=== PATIENT | female | born 1960 | race Caucasian/White ===

== ENCOUNTER 2021-09-12 12:23 | Emergency (ER) | payer MEDICARE, OTHER, SELFPAY ==
--- NOTE | 2021-09-12 12:34 | ED_ITS ---
HPI - Extremity Injury (Upper) General Chief Complaint: Extremity Injury, Upper Stated Complaint: fell down Rt hand possibly broken Time Seen by Provider: 09/12/21 12:34 History of Present Illness HPI narrative: 60-year-old female nonsmoker with noncontributory medical history presents with a chief complaint of a ground level fall resulting in pain and injury to her right hand just prior to arrival. She was walking down stairs and stepped off of the bottom step and thinks she caught her feet up underneath her and fell onto an outstretched hand. She denies any dizziness, weakness or lightheadedness. She denies any head injury. She has no head neck or back pain. She has pain overlying the medial aspect of her hand overlying the 5th metacarpal. She denies any numbness, tingling or weakness Related Data Home Medications Medication Instructions Recorded Confirmed chlorthalidone 25 mg tablet 25 mg PO DAILY 09/12/21 09/12/21 Allergies Allergy/AdvReac Type Severity Reaction Status Date / Time Sulfa (Sulfonamide Allergy Unknown SWELLING Verified 09/12/21 12:38 Antibiotics) [SULFA (SULFONAMIDE ANTIBIOTICS)] lisinopril AdvReac Cough Verified 09/12/21 12:38 Review of Systems Review of Systems Narrative: GENERAL: Denies chills, fatigue, malaise, fever, sweats. HEENT: Denies sinus pain, ear pain, sore throat, difficulty swallowing, dizziness. RESPIRATORY: Denies dyspnea, cough, wheezing, hemoptysis, sputum. CARDIOVASCULAR: Denies chest pain, palpitations, orthopnea, edema, GASTROINTESTINAL: Denies nausea, vomiting, abdominal pain, diarrhea, constipation, melena. : Denies dysuria, frequency, incontinence, hematuria, urinary retention. MUSCULOSKELETAL: See HPI SKIN: Denies rash, skin lesions, or other NEUROLOGIC: Denies weakness, headache, numbness, change in speech, confusion, seizures, incoordination. PSYCHIATRIC: No concerning psychosocial issues. 12 point review of systems is negative except for those stated above Patient History Social History Smoking Status: Never smoker Exam Narrative Exam Narrative: GEN: AOx3 and in mild distress EYES: Pupils are equal, round, and reactive to light and accommodation. Extraoccular muscles are intact bilaterally. There is no subconjunctival hemorr deshaun or exudate. CHEST: Lungs are clear to auscultation bilaterally and free of wheezes, rales, or rhonchi. Heart rate is regular rhythm, there are no murmurs, clicks, rubs, or gallops. There is no chest wall tenderness. ABD: Abdomen is soft and nontender. There is no guarding or rebound. Bowel sounds are normal in all 4 quadrants. There is no mass or organomegaly. EXT: Full but painful range of motion of right hand and wrist. No pain on palpation of bones of the wrist, elbow or shoulder. Closed, isolated and neurovascularly intact SKIN: Warm, pink, and dry. No erythema or rash Initial Vital Signs Initial Vital Signs: Vital Signs Temperature 98 F 09/12/21 12:35 Pulse Rate 94 H 09/12/21 12:35 Respiratory Rate 17 09/12/21 12:35 Blood Pressure 169/89 H 09/12/21 12:35 Pulse Oximetry 96 09/12/21 12:35 Procedures Orthopedic Splinting/Casting Injury #1: Side: right Upper Extremity Injury Location: hand Upper Extremity Immobilizer: volar splint Post splinting neuro exam: intact Post splinting vascular exam: intact Placed by: Nursing Course Orders Ordered: ED Orders 09/12/21 12:41 XR hand RT min 3V Stat Vital Signs Vital signs: Vital Signs - 8 hr 09/12/21 12:35 Temperature 98 F Pulse Rate 94 H Respiratory Rate 17 Blood Pressure 169/89 H Pulse Oximetry 96 MDM - Extremity Injury (Upper) Imaging Data Extremity x-ray #1: Radiologist's Impression: Dayna Clayton??60??F??1960 ? Allergy/Adv: Sulfa (Sulfonamide Antibiotics), lisinopril (More??) Close Hand X-Ray (Signed) LitzyChuckie honeycuttence - 09/12/21 Radiology - Historical 05/12/17 Radiology - Historical 05/12/17 Launch?[address] [address] XRay Report Signed Patient: Dayna Clayton MR#: [id number] : 1960 Acct:[id number] Age/Sex: 60 / F Date of Service: 09/12/21 Loc: ED Accession Number: [id number] ?? Procedure: XR hand RT min 3V Ordering Provider: Tien Benitez D.O. PROCEDURE:? XR HAND RT MIN 3V ? INDICATIONS:? fall with pain over 5th MC ? TECHNIQUE:? 3 views of the hand(s) acquired.? ? COMPARISON:? None. ? FINDINGS:? ? Bones:? No fractures or dislocations.? Carpal bones are normally aligned.? No suspicious bony lesions.? ? Soft tissues:? No suspicious soft tissue calcifications.? ? ? IMPRESSION:? No fracture. No osseous lesion. If symptoms and/or clinical suspicion for pathology persists, further assessment with repeat radiographs (7-10 days) or advanced imaging (e.g. CT, MRI or bone scan) should be considered. ? ? Dictated by: Yelena Mcghee MD, PhD on 09/12/2021 at 11:53 ? ? Approved by: Yelena Mcghee MD, PhD on 09/12/2021 at 11:55? Discharge Plan Departure Patient Disposition: Home Clinical Impression: Abdominal pain Hand sprain Qualifiers: Encounter type: initial encounter Laterality: right Qualified Code(s): S63.91XA - Sprain of unspecified part of right wrist and hand, initial encounter Instructions: DI for Wrist Sprain Activity Restrictions/Additional Instructions: *You have been diagnosed with [fall with hand pain and sprain, no evidence of fracture or dislocation on imaging or physical exam *What to do: *Please continue to take your regular medications as directed. [ ] New medication prescriptions sent to your pharmacy: [ ] [ ] New medication written as a paper prescription [ x] No new medications given *Please follow up with your primary care provider in 2-3 days, call for an appointment. Let them know you were seen in the Emergency Department and that we ask that you be seen in follow up. We will electronically transmit a record of today's note if your PCP is in our system *If you do not have a primary care provider please contact the [facility] Resource line at [phone]. They will ask some questions about your medical history and help get you set up with a doctor in the community. *Return to Emergency Department if you should have any new, worsening or concerning symptoms, such as [fever greater than 101 F, shaking chills, worsening pain, persistent vomiting or other bothersome symptoms] Prescriptions: No Action chlorthalidone 25 mg tablet 25 mg PO DAILY RF: 0 Referrals: Woodrow Eduardo MD [Primary Care Provider] -
[2021-09-12 12:35] VITALS: BP 169/89; PULSE 94; RESP 17; TEMP 36.6; O2SAT 96; BMI 29.8
--- NOTE | 2021-09-12 12:41 | DI.RAD.S_ITS ---
PROCEDURE: XR HAND RT MIN 3V INDICATIONS: fall with pain over 5th MC TECHNIQUE: 3 views of the hand(s) acquired. COMPARISON: None. FINDINGS: Bones: No fractures or dislocations. Carpal bones are normally aligned. No suspicious bony lesions. Soft tissues: No suspicious soft tissue calcifications. IMPRESSION: No fracture. No osseous lesion. If symptoms and/or clinical suspicion for pathology persists, further assessment with repeat radiographs (7-10 days) or advanced imaging (e.g. CT, MRI or bone scan) should be considered. Dictated by: Yelena Mcghee MD, PhD on 09/12/2021 at 11:53 Approved by: Yelena Mcghee MD, PhD on 09/12/2021 at 11:55
== END 2021-09-12 13:19 | disposition home or self-care (01) ==
PROVIDERS: Emergency Provider Emergency Medicine
DX: S63.91XA Sprain of unspecified part of right wrist and hand, initial encounter (principal); R10.9 Unspecified abdominal pain; W19.XXXA Unspecified fall, initial encounter
CPT/HCPCS: 29540; 73130; 99283

== ENCOUNTER 2022-02-20 21:53 | Emergency (ER) | payer MEDICARE, OTHER, SELFPAY ==
[2022-02-20 21:56] VITALS: BP 155/77; PULSE 71; RESP 16; TEMP 36.6; O2SAT 98; BMI 28.8
--- NOTE | 2022-02-20 22:01 | DI.RAD.S_ITS ---
PROCEDURE: XR RIBS LT MIN 3V W CXR1V INDICATIONS: fall in tub, striking left ribs/back TECHNIQUE: 3 views of the left ribs were acquired, along with a single view chest. COMPARISON: None. FINDINGS: Surgical changes and devices: None. Bones and chest wall: No definite acute displaced rib fractures seen. No other fractures or dislocations. No suspicious bony lesions. Overlying soft tissues appear unremarkable. Lungs and pleura: No pleural effusions or pneumothorax. Lungs appear clear. Mediastinum: Mediastinal contours appear normal. Heart size is normal. IMPRESSION: Chest without acute cardiopulmonary abnormalities. No definite rib fractures identified. Dictated by: Aly Rogers M.D. on 02/20/2022 at 23:21 Approved by: Aly Rogers M.D. on 02/20/2022 at 23:22
--- NOTE | 2022-02-20 23:41 | ED.BACK ---
HPI - Back Pain/Injury General Chief Complaint: Back Pain/Injury Stated Complaint: FALL HURT LOWER BACK Time Seen by Provider: 02/20/22 23:41 History of Present Illness HPI Narrative: 61-year-old woman with fibromyalgia, chronic pain, lower extremity edema who fell in the shower this evening landing on her left posterior ribs and suffering significant pain at this time. She also notes that she was diagnosed with a bladder infection this morning is currently on antibiotics. The fall was a mechanical fall not associated with any weakness. She does not report any fevers, no dyspnea, palpitations, abdominal pain just significant pain with movement related to the left posterior ribs from the fall. There is no additional back hip or lower extremity injury Related Data Home Medications Medication Instructions Recorded Confirmed chlorthalidone 25 mg tablet 25 mg PO DAILY 09/12/21 09/12/21 Previous Rx's Medication Instructions Recorded oxycodone-acetaminophen 5 mg-325 1 tab PO Q6H PRN #30 tab 02/20/22 mg tablet Allergies Allergy/AdvReac Type Severity Reaction Status Date / Time Sulfa (Sulfonamide Allergy Unknown SWELLING Verified 02/20/22 22:01 Antibiotics) [SULFA (SULFONAMIDE ANTIBIOTICS)] lisinopril AdvReac Cough Verified 02/20/22 22:01 Review of Systems Review of Systems Narrative: Remainder of complete review of systems is otherwise unremarkable except for that included in the HPI. Patient History Medical History (Updated 02/20/22 @ 23:59 by Sharmin Bee MD) Fibromyalgia Social History Smoking Status: Never smoker Smoking Status: Never smoker alcohol intake frequency: holidays/special occasions only Substance Use Type: does not use Exam Initial Vital Signs Initial Vital Signs: Vital Signs Temperature 98 F 02/20/22 21:56 Pulse Rate 71 02/20/22 21:56 Respiratory Rate 16 02/20/22 21:56 Blood Pressure 155/77 H 02/20/22 21:56 Pulse Oximetry 98 02/20/22 21:56 General: Healthy appearing, in significant pain but. Able to give a complete and coherent history. Well-nourished well-developed HEENT: Moist mucous membranes, normal sclera with reactive pupils, no trauma to the head Neck: No tenderness, no midline cervical spine tenderness Respiratory: Significant tenderness to left posterior ribs without obvious abnormality, subcutaneous air abrasions, contusions or skin rashes. Spine: She is splinting on that side secondary to pain. There is no tenderness along the thoracic or lumbar spine to palpation she does have significant paraspinous spasms from T6-L1 on the left side. Cardiac: Regular rate and rhythm no murmurs no bruits Abdomen: Soft, nontender, good bowel tones, no flank pain Skin: Warm and dry, no rashes Neurologic: Grossly neurologically intact with no obvious asymmetries or abnormalities Extremities: No trauma, well perfused Psych: Cooperative, appropriate insight and affect Course Orders Ordered: ED Orders 02/20/22 22:01 XR ribs LT min 3V w CXR1V Stat Discontinued Medications Ketorolac Tromethamine (Ketorolac 30 Mg/Ml Vial) 30 mg IM NOW ONE Stop: 02/20/22 23:53 Last Admin: 02/21/22 00:08 Dose: 30 mg Documented by: RAMILA Oxycodone/Acetaminophen (Oxycodone/Acetaminophen 5/325 Tablet) 2 tab PO NOW ONE Stop: 02/20/22 23:53 Last Admin: 02/21/22 00:08 Dose: 2 tab Documented by: RAMILA Oxycodone/Acetaminophen (Oxycodone/Apap 5/325 Prepack) 1 bottle MISC SEEINSTR ONE Stop: 02/20/22 23:53 Last Admin: 02/21/22 00:07 Dose: 1 bottle Documented by: RAMILA Vital Signs Vital signs: Vital Signs - 8 hr 02/20/22 21:56 Temperature 98 F Pulse Rate 71 Respiratory Rate 16 Blood Pressure 155/77 H Pulse Oximetry 98 MDM - Back Pain/Injury ECG Data Interpretation: FINDINGS:? ? Surgical changes and devices:? None.? ? Bones and chest wall:? No definite acute displaced rib fractures seen.? No other? fractures or dislocations.? No suspicious bony lesions.? Overlying soft tissues appear unremarkable.? ? Lungs and pleura:? No pleural effusions or pneumothorax.? Lungs appear clear.? ? Mediastinum:? Mediastinal contours appear normal.? Heart size is normal.? ? IMPRESSION:? Chest without acute cardiopulmonary abnormalities.? No definite rib fractures identified. ? ? Dictated by: Aly Rogers M.D. on 02/20/2022 at 23:21? ?? MDM Narrative Medical decision making narrative: 61-year-old woman who suffered a mechanical fall in the shower landing over the edge of the shower on the left posterior ribs. Fortunately, there actually are no obvious rib fractures, no hemopneumothorax and no acute spinous injuries or lower extremity abnormalities. She is given a shot of Toradol in 2 Percocet in the emergency department. She notes that she and her flank Deloris in 48 hours so she will be given a couple of extra pain pills to deal with the discomfort of traveling with significantly bruised ribs. She is also given incentive spirometer instructions on use to avoid complications. There is no evidence of additional trauma or need for additional workup at this time. Questions are answered and she is safe for home discharge Discharge Plan Departure Patient Disposition: Home Clinical Impression: Fall Qualifiers: Encounter type: initial encounter Qualified Code(s): W19.XXXA - Unspecified fall, initial encounter Contusion of ribs Qualifiers: Encounter type: initial encounter Laterality: left Qualified Code(s): S20.212A - Contusion of left front wall of thorax, initial encounter Instructions: DI for Rib Fracture Activity Restrictions/Additional Instructions: Thank you for coming in today Fortunately, the x-rays do not show an obvious rib fracture however you clearly have bruised multiple ribs and are going to have the same type of recovery had you actually broken up. The underlying lung itself looks very healthy. There is no evidence of collapsed lung or bleeding around her lungs. One of the complications with rib fractures is developing a pneumonia because you are not taking deep enough breaths and fully inflating the lung in that area secondary to pain. Please use the incentive spirometer to help keep the lung fully inflated and avoid pneumonia. Using 400 mg of ibuprofen (2 [id number] pills) and 1 Tylenol every 6 hours can be very helpful in controlling pain. For severe pain use to ibuprofen and 1-2 Percocet will be helpful. On days when you do choose to use Percocet make sure that you are using a stool softener to avoid constipation as well. If you find new or changing symptoms, please feel free to return to the emergency department Prescriptions: New oxycodone-acetaminophen 5-325 mg tablet 1 tab PO Q6H PRN (Reason: pain) Qty: 30 0RF No Action chlorthalidone 25 mg tablet 25 mg PO DAILY 0RF
--- NOTE | 2022-02-21 00:01 | PC.NURSE ---
RT at bedside for incentive spirometer teaching
[2022-02-21] MEDS: OXYCODONE/APAP 5/325 PREPACK 1 BOTTLE MISC (00:07)
[2022-02-21] MEDS: OXYCODONE/ACETAMINOPHEN 5/325 TABLET 2 TAB PO (00:08)
[2022-02-21] MEDS: KETOROLAC 30 MG/ML VIAL IM (00:08)
== END 2022-02-21 00:17 | disposition home or self-care (01) ==
PROVIDERS: Emergency Provider Emergency Medicine
DX: S20.212A Contusion of left front wall of thorax, initial encounter (principal); W19.XXXA Unspecified fall, initial encounter; Y92.89 Other specified places as the place of occurrence of the external cause
CPT/HCPCS: 71101; 96372; 99283; 99284; J1885

== ENCOUNTER 2022-05-30 11:15 | Inpatient (IN) | payer MEDICARE, OTHER, SELFPAY ==
[2022-05-30] VITALS (20 sets, daily range): BP systolic 94–145; BP diastolic 44–94; PULSE 84–94; RESP 16–29; TEMP 36.7–37.3; O2SAT 92–98; BMI 29.7
[2022-05-30 12:09] LABS: Add Manual Diff / Slide Review NO; Basophils Absolute Auto 0 /uL (0-100); Basophils Percent Auto 0.2 % (0-2); Eosinophils Absolute Auto 0 /uL (0-450); Eosinophils Percent Auto 0.1 % (2-4); Hematocrit 42.6 % (36-46); Hemoglobin 14.8 g/dL (12.0-16.0); Lymphocytes Absolute Auto 800 /uL (1100-4500); Lymphocytes Percent Auto 5.9 % (25-40); Mean Corpuscular HGB Conc 34.6 % (30-36); Mean Corpuscular Hemoglobin 30.5 PG (26-34); Mean Corpuscular Volume 88.1 fL (80-100); Monocytes Absolute Auto 100 /uL (0-900); Monocytes Percent Auto 0.9 % (3-14); Neutrophils Absolute Auto 12400 /uL (1500-7000); Neutrophils Percent Auto 92.9 % (50-75); Platelet Count 300 X10^3/uL (150-400); Red Blood Cell Count 4.84 X10^6/uL (4.0-5.2); White Blood Cell Count 13.3 X10^3/uL (4.5-11.0)
[2022-05-30 12:15] LABS: Alanine Aminotransferase 571 IU/L (<35); Albumin 4.7 g/dL (3.5-5.0); Albumin Globulin Ratio 1.3 (1.0-2.8); Alkaline Phosphatase 245 U/L (38-126); BUN Creatinine Ratio 18.3 (6-22); Bilirubin Total 3.6 mg/dL (0.2-1.3); Blood Urea Nitrogen 17 mg/dL (7-17); Calcium 9.9 mg/dL (8.4-10.2); Carbon Dioxide 32 mmol/L (22-32); Chloride 97 mmol/L (98-107); Estimated Glomerular Filt Rate > 60 mL/min (>60); Globulin 3.6 g/dL (1.7-4.1); Glucose 209 mg/dL (80-110); HEMOLYSIS < 15 (0-50); Lipase 199 U/L (23-300); Potassium 3.1 mmol/L (3.4-5.1); Sodium 140 mmol/L (137-145); Total Protein 8.3 g/dL (6.3-8.2)
[2022-05-30 12:26] LABS: Aspartate Aminotransferase 1184 IU/L (14-36)
[2022-05-30] MEDS: ONDANSETRON 4 MG/2 ML INJ IV (12:34)
[2022-05-30] MEDS: KETOROLAC 30 MG/ML VIAL 15 MG IV (12:34)
[2022-05-30] MEDS: SODIUM CHLORIDE 0.9% 1,000 ML 1000 ML IV (12:35)
--- NOTE | 2022-05-30 12:36 | DI.CT.S_ITS ---
PROCEDURE: CT ABDOMEN PELVIS W CON INDICATIONS: Generalized abdominal pain TECHNIQUE: After the administration of intravenous contrast, axial sections acquired from the lung bases to the pubic symphysis. Coronal and sagittal reformats were performed. For radiation dose reduction, the following was used: automated exposure control, adjustment of mA and/or kV according to patient size. COMPARISON: [facility], CT, ABDOMEN/PELVIS WITH CONTRAST, 05/12/2017, 18:36. FINDINGS: Image quality: Excellent. Lung bases: Scattered scarring/atelectasis. Heart: No significant findings. ABDOMEN: Liver: Steatosis. Gallbladder: Distended Biliary ducts: Unremarkable. Pancreas: Moderate fatty atrophy. Spleen: Unremarkable. Adrenal Glands: Unremarkable. Kidneys and Ureters: Unremarkable. Stomach and Bowel: Small hiatal hernia. No bowel obstruction. Colonic diverticulosis. Peritoneum: No abnormal intraperitoneal fluid. No free air. Ventral Wall: Small fat containing umbilical hernia. Stable lower midline clip. Abdominal Nodes: No retroperitoneal or mesenteric adenopathy by size criteria. Vessels: Aorta and inferior vena cava are normal in size. PELVIS: Pelvic Organs: Unremarkable. Bladder: Unremarkable. Pelvic Nodes: No enlarged lymph nodes. Miscellaneous: No hernias are seen. Bones: Age-indeterminate fractures of the left lower ribs. IMPRESSION: Age-indeterminate fractures involving the left posterior 10th and 11th ribs. Otherwise, no acute abdominal pelvic pathology. The gallbladder is distended and could be better evaluated with ultrasound. There is hepatic steatosis. Dictated by: Familia Shah M.D. on 05/30/2022 at 13:27 Approved by: Familia Shah M.D. on 05/30/2022 at 13:36
--- NOTE | 2022-05-30 12:54 | ED.ABDPAIN ---
HPI - Abdominal Pain <Thelma Kelsey PA-C - Last Filed: 05/30/22 22:06> General Chief Complaint: Abdominal Pain Stated Complaint: stomach pain Time Seen by Provider: 05/30/22 12:07 Source: patient and family Mode of arrival: Ambulatory History of Present Illness HPI narrative: 61-year-old female with past medical history chronic pain, fibromyalgia presents to the ED with 3 days of epigastric and right upper quadrant pain. Patient also endorses nausea, vomiting, bloating. Patient describes the abdominal pain as wrapping around her abdomen to her sides. Patient has some history of IBS. Patient denies alcohol use. Patient denies drug use. Patient is a nonsmoker. Patient denies history of hepatitis or other liver problems. Related Data Home Medications Medication Instructions Recorded Confirmed chlorthalidone 25 mg tablet 25 mg PO DAILY 09/12/21 05/31/22 Previous Rx's Medication Instructions Recorded celecoxib 200 mg capsule (Celebrex) 200 mg PO BID #10 caps 05/31/22 ciprofloxacin HCl 750 mg tablet 750 mg PO BID #6 tabs 05/31/22 gabapentin 300 mg capsule 300 mg PO Q8HR #30 caps 05/31/22 (Neurontin) metronidazole 375 mg capsule 750 mg PO BID #6 caps 05/31/22 (Flagyl) oxycodone 5 mg tablet 5 mg PO Q4HR PRN Pain, Moderate 05/31/22 (4-6) #30 tabs Allergies Allergy/AdvReac Type Severity Reaction Status Date / Time losartan Allergy Unknown Verified 06/02/22 10:53 Sulfa (Sulfonamide Allergy Unknown SWELLING Verified 06/02/22 10:53 Antibiotics) [SULFA (SULFONAMIDE ANTIBIOTICS)] lisinopril AdvReac Cough Verified 06/02/22 10:53 Review of Systems <Thelma Kelsey PA-C - Last Filed: 05/30/22 22:06> Review of Systems ROS Unobtainable: All systems reviewed & are unremarkable except as noted in HPI and below Constitutional Constitutional: Denies chills, Denies fatigue, Denies fever(s), Denies frequent falls, Denies lethargy and Denies weakness Eyes Eyes: Denies change in vision, Denies eye discharge, Denies irritation and Denies loss of vision ENT Ears, Nose, Mouth, and Throat: Denies change in voice, Denies dizziness, Denies neck pain, Denies sore throat and Denies throat swelling Cardiovascular Cardiovascular: Denies chest pain, Denies irregular heart rhythm, Denies lightheadedness, Denies palpitations, Denies dyspnea, Denies dyspnea on exertion and Denies orthopnea Respiratory Respiratory: Denies cough, Denies dyspnea, Denies dyspnea on exertion and Denies wheezing Gastrointestinal Gastrointestinal: Reports abdominal pain, Reports bloating, Denies change in bowel habits, Denies coffee ground emesis, Reports diarrhea, Reports nausea and Reports vomiting Genitourinary Genitourinary: Denies hematuria, Denies dysuria, Denies flank pain, Denies urinary incontinence and Denies urinary urgency Musculoskeletal Musculoskeletal: Denies back pain, Denies muscle weakness, Denies neck pain, Denies numbness and Denies tingling Integumentary/Breasts Skin/Breast: Denies pruritus, Denies erythema, Denies rash and Denies wounds Neurologic Neurologic: Denies behavioral changes, Denies confusion, Denies dizziness, Denies frequent falls, Denies loss of vision, Denies numbness, Denies tingling and Denies weakness Psychiatric Psychiatric: Denies anxiety, Denies behavioral changes, Denies confusion, Denies depression, Denies homicidal ideation and Denies suicidal ideation Endocrine Endocrine: Denies fatigue, Denies flushing and Denies palpitations Hematologic/Lymphatic Hematologic/Lymphatic: Denies easy bruising Allergic/Immunologic Allergic/Immunologic: Denies urticaria, Denies throat swelling and Denies wheezing Patient History <Thelma Kelsey PA-C - Last Filed: 05/30/22 22:06> Medical History Fibromyalgia Social History household members: spouse Smoking Status: Never smoker alcohol intake: current Smoking Status: Never smoker alcohol intake frequency: holidays/special occasions only Substance Use Type: does not use Exam <Thelma Kelsey PA-C - Last Filed: 05/30/22 22:06> Initial Vital Signs Initial Vital Signs: Vital Signs Temperature 98.3 F 05/30/22 11:18 Pulse Rate 91 H 05/30/22 11:18 Respiratory Rate 16 05/30/22 11:18 Blood Pressure 135/94 H 05/30/22 11:18 Pulse Oximetry 96 05/30/22 11:18 Oxygen Delivery Method 05/30/22 11:18 Const General: cooperative [facility] Head: normocephalic and atraumatic Ears: external ears normal and TM's normal bilaterally Nose: external nose normal and No nasal discharge Face and sinus: sinuses nontender, face symmetric, no sinus tenderness and No dry mucous membranes Mouth: oral mucosae normal and moist mucous membranes Teeth and gingiva: dentition normal Throat: tonsils normal and uvula midline Eyes General: Yes appearance normal, both eyes and all related structures Eyelids: eyelids normal Conjunctivae: conjunctivae normal Sclera: sclerae normal Pupils: PERRL EOM: EOM intact bilaterally Neck Neck: normal visual inspection, trachea midline, No lymphadenopathy, No midline deformity and No JVD Lymphatic: No lymphedema Chest Chest: normal inspection of the chest Resp Effort & Inspection: normal respiratory effort, able to speak in complete sentences, no respiratory distress and no use of accessory muscles Auscultation: clear to auscultation bilaterally, no rales, no rhonchi and no wheezes Cardio Rate: regular rate Rhythm: regular rhythm Heart Sounds: no click, no gallops, no murmurs and no rubs Pulses: normal peripheral pulses GI Inspection: non-distended Palpation: soft, no hepatosplenomegaly, No guarding, No pulsatile mass and No tender Auscultation: normal bowel sounds Other: Abdomen is soft, nondistended. Abdomen is tender to palpation in the epigastric and right upper quadrants. No CVA tenderness. General: No CVA tenderness Back/Spine/Pelvis Back: No CVA tenderness Cervical Spine: cervical ROM normal and No pain with cervical ROM Thoracic/Lumbar Spine: thoracic and lumbar spine normal to inspection Skin General: no rashes or lesions noted, No jaundice and No petechiae Neuro General: patient alert, patient oriented x3, gait normal and no focal motor deficits Speech: speech normal Extrem General: full ROM, no clubbing, cyanosis or edema, no pedal edema and no calf tenderness Psych Appearance: well kempt Mental Status: mental status grossly normal Attitude: cooperative Thought Content: normal and suicidality Judgment: judgment good <Anson Calixto MD - Last Filed: 06/02/22 12:25> Initial Vital Signs Initial Vital Signs: Vital Signs Temperature 98.3 F 05/30/22 11:18 Pulse Rate 91 H 05/30/22 11:18 Respiratory Rate 16 05/30/22 11:18 Blood Pressure 135/94 H 05/30/22 11:18 Pulse Oximetry 96 05/30/22 11:18 Oxygen Delivery Method 05/30/22 11:18 Course <Thelma Kelsey PA-C - Last Filed: 05/30/22 22:06> Orders Ordered: Discontinued Medications Acetaminophen (Acetaminophen 325 Mg Tablet) 650 mg PO Q6HR [facility] Last Admin: 05/31/22 13:21 Dose: Not Given Documented By: Admin: 05/31/22 05:19 Dose: Not Given Documented By: Admin: 05/31/22 00:41 Dose: Not Given Documented By: Admin: 05/30/22 19:07 Dose: Not Given Documented By: ANA Celecoxib (Celecoxib 100 Mg Capsule) 200 mg PO BID [facility] Last Admin: 05/31/22 10:51 Dose: Not Given Documented By: CONNER Celecoxib (Celecoxib 200 Mg Capsule) 200 mg PO BID [facility] Celecoxib (Celecoxib 200 Mg Capsule) 200 mg PO BID [facility] Last Admin: 05/31/22 08:27 Dose: Not Given Documented By: Admin: 05/30/22 22:42 Dose: 200 mg Documented By: KATHLEEN Gabapentin (Gabapentin 300 Mg Capsule) 300 mg PO Q8HR [facility] Last Admin: 05/31/22 14:53 Dose: Not Given Documented By: KMFortino Admin: 05/31/22 05:19 Dose: Not Given Documented By: Admin: 05/30/22 21:32 Dose: 300 mg Documented By: KATHLEEN Sodium Chloride (Normal Saline 0.9%) 1,000 mls @ 1,000 mls/hr IV BOLUS ONE Stop: 05/30/22 13:21 Last Infusion: 05/30/22 15:49 Dose: 0 mls/hr Documented By: Admin: 05/30/22 12:35 Dose: 1,000 mls/hr Documented By: KIMBELREE Lactated Ringer's (Lactated Ringers) 1,000 mls @ 100 mls/hr IV CONT [facility] Last Admin: 05/31/22 15:29 Dose: 100 mls/hr Documented By: Infusion: 05/31/22 15:21 Dose: 100 mls/hr Documented By: Admin: 05/31/22 05:21 Dose: 100 mls/hr Documented By: Infusion: 05/31/22 05:01 Dose: 100 mls/hr Documented By: Admin: 05/30/22 19:01 Dose: 100 mls/hr Documented By: ANA Levofloxacin (Levaquin) 500 mg in 100 mls @ 100 mls/hr IV NOW ONE Stop: 05/31/22 07:20 Last Infusion: 05/31/22 13:35 Dose: 100 mls/hr Documented By: Admin: 05/31/22 08:26 Dose: 100 mls/hr Documented By: CONNER Metronidazole (Flagyl) 500 mg in 100 mls @ 100 mls/hr IV Q8H [facility] Last Admin: 05/31/22 15:29 Dose: 100 mls/hr Documented By: Infusion: 05/31/22 08:28 Dose: 100 mls/hr Documented By: Admin: 05/31/22 06:57 Dose: 100 mls/hr Documented By: KATHLEEN Sodium Chloride (Normal Saline 0.45%) 500 mls @ 200 mls/hr IV CONT [facility] Last Infusion: 05/31/22 13:22 Dose: 200 mls/hr Documented By: Admin: 05/31/22 08:37 Dose: 200 mls/hr Documented By: CONNER Ketorolac Tromethamine (Ketorolac 30 Mg/Ml Vial) 15 mg IV NOW ONE Stop: 05/30/22 12:23 Last Admin: 05/30/22 12:34 Dose: 15 mg Documented By: KIMBERLEE Morphine Sulfate (Morphine 4 Mg/Ml Inj) 4 mg IV NOW ONE Stop: 05/30/22 14:53 Last Admin: 05/30/22 14:58 Dose: 4 mg Documented By: KIMBERLEE Ondansetron HCl (Ondansetron 4 Mg/2 Ml Inj) 4 mg IV NOW ONE Stop: 05/30/22 12:23 Last Admin: 05/30/22 12:34 Dose: 4 mg Documented By: KIMBERLEE Oxycodone HCl (Oxycodone Ir 5 Mg Tablet) 5 mg PO Q4HR PRN PRN Reason: Pain, Moderate (4-6) Last Admin: 05/31/22 13:27 Dose: 5 mg Documented By: Admin: 05/30/22 19:25 Dose: 5 mg Documented By: ANA Potassium Chloride (Potassium Chloride 20 Meq Tab) 40 meq PO NOW ONE Stop: 05/31/22 09:21 Last Admin: 05/31/22 13:35 Dose: 40 meq Documented By: CONNER Scopolamine (Scopolamine 1 Patch) 1 patch TOP NOW ONE Stop: 05/30/22 17:06 Last Admin: 05/30/22 19:01 Dose: 1 patch Documented By: ANA Vital Signs Vital signs: Vital Signs - 8 hr 05/30/22 14:00 05/30/22 14:22 05/30/22 14:22 Pulse Rate 85 89 Respiratory Rate 20 Blood Pressure 110/56 L Pulse Oximetry 93 93 05/30/22 14:30 05/30/22 14:30 05/30/22 15:00 Pulse Rate 89 87 Respiratory Rate 20 24 Blood Pressure 108/55 L Pulse Oximetry 93 93 05/30/22 15:01 05/30/22 15:01 05/30/22 15:38 Pulse Rate 90 89 Respiratory Rate Blood Pressure 97/53 L Pulse Oximetry 93 05/30/22 16:00 Pulse Rate 85 Respiratory Rate Blood Pressure Pulse Oximetry 97 <Anson Calixto MD - Last Filed: 06/02/22 12:25> Orders Ordered: Discontinued Medications Acetaminophen (Acetaminophen 325 Mg Tablet) 650 mg PO Q6HR [facility] Last Admin: 05/31/22 13:21 Dose: Not Given Documented By: Admin: 05/31/22 05:19 Dose: Not Given Documented By: Admin: 05/31/22 00:41 Dose: Not Given Documented By: Admin: 05/30/22 19:07 Dose: Not Given Documented By: ANA Celecoxib (Celecoxib 100 Mg Capsule) 200 mg PO BID [facility] Last Admin: 05/31/22 10:51 Dose: Not Given Documented By: CONNER Celecoxib (Celecoxib 200 Mg Capsule) 200 mg PO BID [facility] Celecoxib (Celecoxib 200 Mg Capsule) 200 mg PO BID [facility] Last Admin: 05/31/22 08:27 Dose: Not Given Documented By: Admin: 05/30/22 22:42 Dose: 200 mg Documented By: KATHLEEN Gabapentin (Gabapentin 300 Mg Capsule) 300 mg PO Q8HR [facility] Last Admin: 05/31/22 14:53 Dose: Not Given Documented By: Admin: 05/31/22 05:19 Dose: Not Given Documented By: Admin: 05/30/22 21:32 Dose: 300 mg Documented By: KATHLEEN Sodium Chloride (Normal Saline 0.9%) 1,000 mls @ 1,000 mls/hr IV BOLUS ONE Stop: 05/30/22 13:21 Last Infusion: 05/30/22 15:49 Dose: 0 mls/hr Documented By: Admin: 05/30/22 12:35 Dose: 1,000 mls/hr Documented By: KF Lactated Ringer's (Lactated Ringers) 1,000 mls @ 100 mls/hr IV CONT [facility] Last Admin: 05/31/22 15:29 Dose: 100 mls/hr Documented By: Infusion: 05/31/22 15:21 Dose: 100 mls/hr Documented By: Admin: 05/31/22 05:21 Dose: 100 mls/hr Documented By: Infusion: 05/31/22 05:01 Dose: 100 mls/hr Documented By: Admin: 05/30/22 19:01 Dose: 100 mls/hr Documented By: ANA Levofloxacin (Levaquin) 500 mg in 100 mls @ 100 mls/hr IV NOW ONE Stop: 05/31/22 07:20 Last Infusion: 05/31/22 13:35 Dose: 100 mls/hr Documented By: Admin: 05/31/22 08:26 Dose: 100 mls/hr Documented By: CONNER Metronidazole (Flagyl) 500 mg in 100 mls @ 100 mls/hr IV Q8H [facility] Last Admin: 05/31/22 15:29 Dose: 100 mls/hr Documented By: Infusion: 05/31/22 08:28 Dose: 100 mls/hr Documented By: Admin: 05/31/22 06:57 Dose: 100 mls/hr Documented By: KATHLEEN Sodium Chloride (Normal Saline 0.45%) 500 mls @ 200 mls/hr IV CONT [facility] Last Infusion: 05/31/22 13:22 Dose: 200 mls/hr Documented By: Admin: 05/31/22 08:37 Dose: 200 mls/hr Documented By: CONNER Ketorolac Tromethamine (Ketorolac 30 Mg/Ml Vial) 15 mg IV NOW ONE Stop: 05/30/22 12:23 Last Admin: 05/30/22 12:34 Dose: 15 mg Documented By: KIMBERLEE Morphine Sulfate (Morphine 4 Mg/Ml Inj) 4 mg IV NOW ONE Stop: 05/30/22 14:53 Last Admin: 05/30/22 14:58 Dose: 4 mg Documented By: KIMBERLEE Ondansetron HCl (Ondansetron 4 Mg/2 Ml Inj) 4 mg IV NOW ONE Stop: 05/30/22 12:23 Last Admin: 05/30/22 12:34 Dose: 4 mg Documented By: KIMBERLEE Oxycodone HCl (Oxycodone Ir 5 Mg Tablet) 5 mg PO Q4HR PRN PRN Reason: Pain, Moderate (4-6) Last Admin: 05/31/22 13:27 Dose: 5 mg Documented By: Admin: 05/30/22 19:25 Dose: 5 mg Documented By: ANA Potassium Chloride (Potassium Chloride 20 Meq Tab) 40 meq PO NOW ONE Stop: 05/31/22 09:21 Last Admin: 05/31/22 13:35 Dose: 40 meq Documented By: CONNER Scopolamine (Scopolamine 1 Patch) 1 patch TOP NOW ONE Stop: 05/30/22 17:06 Last Admin: 05/30/22 19:01 Dose: 1 patch Documented By: ANA Vital Signs Vital signs: Vital Signs - 8 hr 05/30/22 14:00 05/30/22 14:22 05/30/22 14:22 Pulse Rate 85 89 Respiratory Rate 20 Blood Pressure 110/56 L Pulse Oximetry 93 93 05/30/22 14:30 05/30/22 14:30 05/30/22 15:00 Pulse Rate 89 87 Respiratory Rate 20 24 Blood Pressure 108/55 L Pulse Oximetry 93 93 05/30/22 15:01 05/30/22 15:01 05/30/22 15:38 Pulse Rate 90 89 Respiratory Rate Blood Pressure 97/53 L Pulse Oximetry 93 05/30/22 16:00 Pulse Rate 85 Respiratory Rate Blood Pressure Pulse Oximetry 97 MDM - Abdominal Pain <Thelma Kelsey PA-C - Last Filed: 05/30/22 22:06> Medical Records Attestation: I reviewed the patient's medical records. Lab Data Attestation: I reviewed the patient's lab results. Lab results narrative: Elevated liver enzymes, lactate 3.0 Result diagrams: 05/31/22 05:58 05/31/22 05:58 Labs: Lab Results 05/30/22 05/30/22 05/30/22 Range/Units 11:22 11:22 11:22 WBC 13.3 H (4.5-11.0) X10^3/uL RBC 4.84 (4.0-5.2) X10^6/uL Hgb 14.8 (12.0-16.0) g/dL Hct 42.6 (36-46) % MCV 88.1 (80-100) fL MCH 30.5 (26-34) PG MCHC 34.6 (30-36) % RDW 13.0 (11.6-14.8) % Plt Count 300 (150-400) X10^3/uL Neut % (Auto) 92.9 H (50-75) % Lymph % (Auto) 5.9 L (25-40) % Hood % (Auto) 0.9 L (3-14) % Eos % (Auto) 0.1 L (2-4) % Baso % (Auto) 0.2 (0-2) % Neut # (Auto) 76367 H (0528-7842) /uL Lymph # (Auto) 800 L (7844-4558) /uL Hood # (Auto) 100 (0-900) /uL Eos # (Auto) 0 (0-450) /uL Baso # (Auto) 0 (0-100) /uL PT (10.1-12.7) SECONDS INR (0.9-1.3) APTT (26.4-36.2) SECONDS Sodium 140 (137-145) mmol/L Potassium 3.1 L (3.4-5.1) mmol/L Chloride 97 L (98-107) mmol/L Carbon Dioxide 32 (22-32) mmol/L BUN 17 (7-17) mg/dL Creatinine 0.93 (0.52-1.04) mg/dL Estimated GFR > 60 (>60) mL/min BUN/Creatinine Ratio 18.3 (6-22) Glucose 209 H (80-110) mg/dL Lactate 3.0 H (0.7-2.1) mmol/L Calcium 9.9 (8.4-10.2) mg/dL Total Bilirubin 3.6 H (0.2-1.3) mg/dL AST 1184 H (14-36) IU/L ALT 571 H (<35) IU/L Alkaline Phosphatase 245 H (38-126) U/L Total Protein 8.3 H (6.3-8.2) g/dL Albumin 4.7 (3.5-5.0) g/dL Globulin 3.6 (1.7-4.1) g/dL Albumin/Globulin Ratio 1.3 (1.0-2.8) Lipase 199 (23-300) U/L Urine RBC (0-5/HPF) Urine WBC (0-5/HPF) Ur Squamous Epith Cells (0-5/HPF) Urine Bacteria (None) Hyaline Casts (None) Urine Mucus (Negative) Ur Culture Indicated? Salicylates (<20) mg/dL U Opiates 300ng/mL cut (Negative) Ur Oxycodone Screen (Negative) Urine Methadone Screen (Negative) Acetaminophen (10-30) ug/mL Ur Barbiturates Screen (Negative) U Tricyclic Antidepress (Negative) Ur Phencyclidine Scrn (Negative) Ur Amphetamines Screen (Negative) U Methamphetamines Scrn (Negative) Ur MDMA Scrn (Ecstasy) (Negative) U Benzodiazepines Scrn (Negative) Urine Cocaine Screen (Negative) U Marijuana (THC) Screen (Negative) Ethyl Alcohol ( - 10) mg/dL SARS-CoV-2 (PCR) (Negative) 05/30/22 05/30/22 05/30/22 Range/Units 11:22 11:22 13:37 WBC (4.5-11.0) X10^3/uL RBC (4.0-5.2) X10^6/uL Hgb (12.0-16.0) g/dL Hct (36-46) % MCV (80-100) fL MCH (26-34) PG MCHC (30-36) % RDW (11.6-14.8) % Plt Count (150-400) X10^3/uL Neut % (Auto) (50-75) % Lymph % (Auto) (25-40) % Hood % (Auto) (3-14) % Eos % (Auto) (2-4) % Baso % (Auto) (0-2) % Neut # (Auto) (8542-0505) /uL Lymph # (Auto) (5936-2676) /uL Hood # (Auto) (0-900) /uL Eos # (Auto) (0-450) /uL Baso # (Auto) (0-100) /uL PT 12.5 (10.1-12.7) SECONDS INR 1.1 (0.9-1.3) APTT 27 (26.4-36.2) SECONDS Sodium (137-145) mmol/L Potassium (3.4-5.1) mmol/L Chloride (98-107) mmol/L Carbon Dioxide (22-32) mmol/L BUN (7-17) mg/dL Creatinine (0.52-1.04) mg/dL Estimated GFR (>60) mL/min BUN/Creatinine Ratio (6-22) Glucose (80-110) mg/dL Lactate (0.7-2.1) mmol/L Calcium (8.4-10.2) mg/dL Total Bilirubin (0.2-1.3) mg/dL AST (14-36) IU/L ALT (<35) IU/L Alkaline Phosphatase (38-126) U/L Total Protein (6.3-8.2) g/dL Albumin (3.5-5.0) g/dL Globulin (1.7-4.1) g/dL Albumin/Globulin Ratio (1.0-2.8) Lipase (23-300) U/L Urine RBC 0-1/hpf (0-5/HPF) Urine WBC 5-10/hpf H (0-5/HPF) Ur Squamous Epith Cells 1-5 /hpf (0-5/HPF) Urine Bacteria Occasional (0-1) (None) Hyaline Casts 0-1/lpf (None) Urine Mucus 2+ H (Negative) Ur Culture Indicated? Specimen cultured Salicylates < 1.0 (<20) mg/dL U Opiates 300ng/mL cut (Negative) Ur Oxycodone Screen (Negative) Urine Methadone Screen (Negative) Acetaminophen < 10 (10-30) ug/mL Ur Barbiturates Screen (Negative) U Tricyclic Antidepress (Negative) Ur Phencyclidine Scrn (Negative) Ur Amphetamines Screen (Negative) U Methamphetamines Scrn (Negative) Ur MDMA Scrn (Ecstasy) (Negative) U Benzodiazepines Scrn (Negative) Urine Cocaine Screen (Negative) U Marijuana (THC) Screen (Negative) Ethyl Alcohol < 10 ( - 10) mg/dL SARS-CoV-2 (PCR) (Negative) 05/30/22 05/30/22 05/30/22 Range/Units 13:37 14:55 15:09 WBC (4.5-11.0) X10^3/uL RBC (4.0-5.2) X10^6/uL Hgb (12.0-16.0) g/dL Hct (36-46) % MCV (80-100) fL MCH (26-34) PG MCHC (30-36) % RDW (11.6-14.8) % Plt Count (150-400) X10^3/uL Neut % (Auto) (50-75) % Lymph % (Auto) (25-40) % Hood % (Auto) (3-14) % Eos % (Auto) (2-4) % Baso % (Auto) (0-2) % Neut # (Auto) (5916-2449) /uL Lymph # (Auto) (8048-9020) /uL Hood # (Auto) (0-900) /uL Eos # (Auto) (0-450) /uL Baso # (Auto) (0-100) /uL PT (10.1-12.7) SECONDS INR (0.9-1.3) APTT (26.4-36.2) SECONDS Sodium (137-145) mmol/L Potassium (3.4-5.1) mmol/L Chloride (98-107) mmol/L Carbon Dioxide (22-32) mmol/L BUN (7-17) mg/dL Creatinine (0.52-1.04) mg/dL Estimated GFR (>60) mL/min BUN/Creatinine Ratio (6-22) Glucose (80-110) mg/dL Lactate 2.3 H (0.7-2.1) mmol/L Calcium (8.4-10.2) mg/dL Total Bilirubin (0.2-1.3) mg/dL AST (14-36) IU/L ALT (<35) IU/L Alkaline Phosphatase (38-126) U/L Total Protein (6.3-8.2) g/dL Albumin (3.5-5.0) g/dL Globulin (1.7-4.1) g/dL Albumin/Globulin Ratio (1.0-2.8) Lipase (23-300) U/L Urine RBC (0-5/HPF) Urine WBC (0-5/HPF) Ur Squamous Epith Cells (0-5/HPF) Urine Bacteria (None) Hyaline Casts (None) Urine Mucus (Negative) Ur Culture Indicated? Salicylates (<20) mg/dL U Opiates 300ng/mL cut Negative (Negative) Ur Oxycodone Screen Negative (Negative) Urine Methadone Screen Negative (Negative) Acetaminophen (10-30) ug/mL Ur Barbiturates Screen Negative (Negative) U Tricyclic Antidepress Negative (Negative) Ur Phencyclidine Scrn Negative (Negative) Ur Amphetamines Screen Negative (Negative) U Methamphetamines Scrn Negative (Negative) Ur MDMA Scrn (Ecstasy) Negative (Negative) U Benzodiazepines Scrn Negative (Negative) Urine Cocaine Screen Negative (Negative) U Marijuana (THC) Screen Negative (Negative) Ethyl Alcohol ( - 10) mg/dL SARS-CoV-2 (PCR) Negative (Negative) Point of care testing: Urine Dip Bedside Urine Glucose Negative Bedside Urine Bilirubin - Negative Bedside Urine Ketone ++ 40 Urine Specific [place] 1.015 Bedside Urine Occult Blood + Bedside Urine pH 7.0 Bedside Urine Protein + 30 Bedside Urine Urobilinogen +/- 1mg Bedside Urine Nitrite - Negative Bedside Urine Leukocytes + 70 Esterase Imaging Data MRCP: Radiologist's Impression: PROCEDURE:? MR ABDOMEN WO CON/MRCP ? INDICATIONS:? Gall stone ? TECHNIQUE:? Coronal HASTE through the abdomen, axial 2-D FLASH in- and [id number], and breath-hold T2 FSE with fat saturation through the biliary system and pancreas.? Oblique coronal and axial thin-slice HASTE, radial thick-slab HASTE centered on the extrahepatic bile ducts.? ? ? COMPARISON:? [facility], US, US ABDOMEN LIMITED, 05/30/2022, 13:57.? [facility], CT, CT ABDOMEN PELVIS W CON, 05/30/2022, 13:16.? [facility], CT, ABDOMEN/PELVIS WITH CONTRAST, 05/12/2017, 18:36. ? FINDINGS:? Image quality:? Excellent.? ? Pancreas and biliary system:? Extrahepatic duct is within normal limits.? No intrahepatic biliary ductal dilatation.? Pancreas demonstrates fatty atrophy, without adjacent soft tissue edema.? Pancreatic duct is normal in caliber, without developmental anomalies.? Gallbladder is distended.? There is a larger gallstone measuring 1.3 cm.? Probable additional small gallstone.? No pericholecystic fluid.? Cystic duct is prominent.? ? Other solid organs:? Liver is normal in size.? Heterogeneous hepatic steatosis.? Spleen is normal in size.? No adrenal nodules.? Both kidneys are normal in size, without hydronephrosis.? Small bilateral peripelvic cysts.? ? Nodes and vessels:? No retroperitoneal or mesenteric adenopathy by size criteria.? Aorta and inferior vena cava are normal in size.? ? Bowel and peritoneum:? Unenhanced bowel loops are normal in caliber.? No free fluid.? ? Lung bases:? No basal pleural effusions.? Heart size is normal.? ? Bones and soft tissues:? No ventral hernias.? Bone marrow is of normal overall signal.? ? IMPRESSION:? 1. Distended gallbladder and cystic duct.? Gallstone or gallstones are present.? No pericholecystic fluid to suggest cholecystitis.? HIDA scan could be considered for further evaluation. ? 2. No significant biliary ductal dilatation.? No pancreatic ductal dilatation. ? 3. Heterogeneous hepatic steatosis. ? ? Dictated by: Judah Howell M.D. on 05/30/2022 at 16:00 ? ? Approved by: Judah Howell M.D. on 05/30/2022 at 16:11 ? US - abdomen: Radiologist's Impression: PROCEDURE:? US ABDOMEN LIMITED ? INDICATIONS:? ABNORMAL GALLBLADDER ON CT ? TECHNIQUE:? Real-time scanning was performed of the abdominal and retroperitoneal organs, with image documentation.? ? COMPARISON:? [facility], CT, CT ABDOMEN PELVIS W CON, 05/30/2022, 13:16. ? FINDINGS:? ? Liver:? Liver is normal in size and homogeneous in echotexture.? ? Gallbladder:? Gallbladder is hydropic with marked distension.? Mobile area of increased echogenicity is noted within the neck measuring 1.7 cm.? Wall thickness is normal measuring 1.5 mm.? ? Biliary ducts:? Intrahepatic bile ducts are non-dilated.? Extrahepatic bile duct caliber is not well visualized.? Normal is 6-7 mm or less in diameter, or 10 mm or less post-cholecystectomy.? IMPRESSION:? ? Hydropic appearing gallbladder with stone.? No wall thickening. ? Dictated by: Yari Romano M.D. on 05/30/2022 at 14:39 ? ? Approved by: Yari Romano M.D. on 05/30/2022 at 14:40 ? CT scan - abdomen/pelvis: Radiologist's Impression: PROCEDURE:? CT ABDOMEN PELVIS W CON ? INDICATIONS:? Generalized abdominal pain ? TECHNIQUE:? After the administration of intravenous contrast, axial sections acquired from the lung bases to the pubic symphysis.? Coronal and sagittal reformats were performed.? For radiation dose reduction, the following was used:? automated exposure control, adjustment of mA and/or kV according to patient size.? ? COMPARISON:? [facility], CT, ABDOMEN/PELVIS WITH CONTRAST, 05/12/2017, 18:36. ? FINDINGS:? Image quality:? Excellent.? ? Lung bases:? Scattered scarring/atelectasis. Heart:? No significant findings. ? ABDOMEN: Liver:? Steatosis. Gallbladder:? Distended Biliary ducts:? Unremarkable.? ? Pancreas:? Moderate fatty atrophy. Spleen:? Unremarkable.? ? Adrenal Glands:? Unremarkable.? ? Kidneys and Ureters:? Unremarkable.? ? ? Stomach and Bowel:? Small hiatal hernia.? No bowel obstruction.? Colonic diverticulosis. Peritoneum:? No abnormal intraperitoneal fluid.? No free air.? ? Ventral Wall:? Small fat containing umbilical hernia.? Stable lower midline clip. Abdominal Nodes:? No retroperitoneal or mesenteric adenopathy by size criteria.? Vessels:? Aorta and inferior vena cava are normal in size.? ? PELVIS: Pelvic Organs:? Unremarkable.? ? Bladder:? Unremarkable.? ? Pelvic Nodes: No enlarged lymph nodes.? Miscellaneous: No hernias are seen. ? ? ? Bones:? Age-indeterminate fractures of the left lower ribs. ? ? IMPRESSION:? Age-indeterminate fractures involving the left posterior 10th and 11th ribs. Otherwise, no acute abdominal pelvic pathology.? The gallbladder is distended and could be better evaluated with ultrasound.? There is hepatic steatosis.? ? Dictated by: Familia Shah M.D. on 05/30/2022 at 13:27 ? ? Approved by: Familia Shah M.D. on 05/30/2022 at 13:36 ? MDM Narrative Medical decision making narrative: 61-year-old female with past medical history chronic pain, fibromyalgia presents to the ED with 3 days of epigastric and right upper quadrant pain. Concern for gastritis versus PUD versus cholecystitis versus pancreatitis versus bowel obstruction versus other intra abdominal pathology. Will obtain labs, lactate, CT abdomen pelvis. Will give ketorolac, Zofran for symptoms. Will consider ultrasound if CT negative. Elevated liver enzymes, alkaline phosphatase. Lactate 3.0. Will give patient IV fluids, recheck lactate. CT shows distended gallbladder. Will obtain ultrasound. Ultrasound shows blocking gallstones in the gallbladder neck, hydrops of the gallbladder and distension of the cystic duct. No findings indicative of cholecystitis. Surgeon Dr. Rangel was consulted, she recommended an MRCP. MRCP was obtained with results consistent with the ultrasound. Per Dr. Rangel's recommendation, admitted patient to the surgery service with the plan for a cholecystectomy tomorrow. Pain is adequately controlled with morphine. Discussed findings with patient. Patient verbalized understanding. <Anson Calixto MD - Last Filed: 06/02/22 12:25> Lab Data Labs: Lab Results 05/30/22 05/30/22 05/30/22 Range/Units 11:22 11:22 11:22 WBC 13.3 H (4.5-11.0) X10^3/uL RBC 4.84 (4.0-5.2) X10^6/uL Hgb 14.8 (12.0-16.0) g/dL Hct 42.6 (36-46) % MCV 88.1 (80-100) fL MCH 30.5 (26-34) PG MCHC 34.6 (30-36) % RDW 13.0 (11.6-14.8) % Plt Count 300 (150-400) X10^3/uL Neut % (Auto) 92.9 H (50-75) % Lymph % (Auto) 5.9 L (25-40) % Hood % (Auto) 0.9 L (3-14) % Eos % (Auto) 0.1 L (2-4) % Baso % (Auto) 0.2 (0-2) % Neut # (Auto) 00136 H (7528-2926) /uL Lymph # (Auto) 800 L (5995-1896) /uL Hood # (Auto) 100 (0-900) /uL Eos # (Auto) 0 (0-450) /uL Baso # (Auto) 0 (0-100) /uL PT (10.1-12.7) SECONDS INR (0.9-1.3) APTT (26.4-36.2) SECONDS Sodium 140 (137-145) mmol/L Potassium 3.1 L (3.4-5.1) mmol/L Chloride 97 L (98-107) mmol/L Carbon Dioxide 32 (22-32) mmol/L BUN 17 (7-17) mg/dL Creatinine 0.93 (0.52-1.04) mg/dL Estimated GFR > 60 (>60) mL/min BUN/Creatinine Ratio 18.3 (6-22) Glucose 209 H (80-110) mg/dL Lactate 3.0 H (0.7-2.1) mmol/L Calcium 9.9 (8.4-10.2) mg/dL Total Bilirubin 3.6 H (0.2-1.3) mg/dL AST 1184 H (14-36) IU/L ALT 571 H (<35) IU/L Alkaline Phosphatase 245 H (38-126) U/L Total Protein 8.3 H (6.3-8.2) g/dL Albumin 4.7 (3.5-5.0) g/dL Globulin 3.6 (1.7-4.1) g/dL Albumin/Globulin Ratio 1.3 (1.0-2.8) Lipase 199 (23-300) U/L Urine RBC (0-5/HPF) Urine WBC (0-5/HPF) Ur Squamous Epith Cells (0-5/HPF) Urine Bacteria (None) Hyaline Casts (None) Urine Mucus (Negative) Ur Culture Indicated? Salicylates (<20) mg/dL U Opiates 300ng/mL cut (Negative) Ur Oxycodone Screen (Negative) Urine Methadone Screen (Negative) Acetaminophen (10-30) ug/mL Ur Barbiturates Screen (Negative) U Tricyclic Antidepress (Negative) Ur Phencyclidine Scrn (Negative) Ur Amphetamines Screen (Negative) U Methamphetamines Scrn (Negative) Ur MDMA Scrn (Ecstasy) (Negative) U Benzodiazepines Scrn (Negative) Urine Cocaine Screen (Negative) U Marijuana (THC) Screen (Negative) Ethyl Alcohol ( - 10) mg/dL SARS-CoV-2 (PCR) (Negative) 05/30/22 05/30/22 05/30/22 Range/Units 11:22 11:22 13:37 WBC (4.5-11.0) X10^3/uL RBC (4.0-5.2) X10^6/uL Hgb (12.0-16.0) g/dL Hct (36-46) % MCV (80-100) fL MCH (26-34) PG MCHC (30-36) % RDW (11.6-14.8) % Plt Count (150-400) X10^3/uL Neut % (Auto) (50-75) % Lymph % (Auto) (25-40) % Hood % (Auto) (3-14) % Eos % (Auto) (2-4) % Baso % (Auto) (0-2) % Neut # (Auto) (4029-8228) /uL Lymph # (Auto) (7301-3369) /uL Hood # (Auto) (0-900) /uL Eos # (Auto) (0-450) /uL Baso # (Auto) (0-100) /uL PT 12.5 (10.1-12.7) SECONDS INR 1.1 (0.9-1.3) APTT 27 (26.4-36.2) SECONDS Sodium (137-145) mmol/L Potassium (3.4-5.1) mmol/L Chloride (98-107) mmol/L Carbon Dioxide (22-32) mmol/L BUN (7-17) mg/dL Creatinine (0.52-1.04) mg/dL Estimated GFR (>60) mL/min BUN/Creatinine Ratio (6-22) Glucose (80-110) mg/dL Lactate (0.7-2.1) mmol/L Calcium (8.4-10.2) mg/dL Total Bilirubin (0.2-1.3) mg/dL AST (14-36) IU/L ALT (<35) IU/L Alkaline Phosphatase (38-126) U/L Total Protein (6.3-8.2) g/dL Albumin (3.5-5.0) g/dL Globulin (1.7-4.1) g/dL Albumin/Globulin Ratio (1.0-2.8) Lipase (23-300) U/L Urine RBC 0-1/hpf (0-5/HPF) Urine WBC 5-10/hpf H (0-5/HPF) Ur Squamous Epith Cells 1-5 /hpf (0-5/HPF) Urine Bacteria Occasional (0-1) (None) Hyaline Casts 0-1/lpf (None) Urine Mucus 2+ H (Negative) Ur Culture Indicated? Specimen cultured Salicylates < 1.0 (<20) mg/dL U Opiates 300ng/mL cut (Negative) Ur Oxycodone Screen (Negative) Urine Methadone Screen (Negative) Acetaminophen < 10 (10-30) ug/mL Ur Barbiturates Screen (Negative) U Tricyclic Antidepress (Negative) Ur Phencyclidine Scrn (Negative) Ur Amphetamines Screen (Negative) U Methamphetamines Scrn (Negative) Ur MDMA Scrn (Ecstasy) (Negative) U Benzodiazepines Scrn (Negative) Urine Cocaine Screen (Negative) U Marijuana (THC) Screen (Negative) Ethyl Alcohol < 10 ( - 10) mg/dL SARS-CoV-2 (PCR) (Negative) 05/30/22 05/30/22 05/30/22 Range/Units 13:37 14:55 15:09 WBC (4.5-11.0) X10^3/uL RBC (4.0-5.2) X10^6/uL Hgb (12.0-16.0) g/dL Hct (36-46) % MCV (80-100) fL MCH (26-34) PG MCHC (30-36) % RDW (11.6-14.8) % Plt Count (150-400) X10^3/uL Neut % (Auto) (50-75) % Lymph % (Auto) (25-40) % Hood % (Auto) (3-14) % Eos % (Auto) (2-4) % Baso % (Auto) (0-2) % Neut # (Auto) (1545-4647) /uL Lymph # (Auto) (7233-3098) /uL Hood # (Auto) (0-900) /uL Eos # (Auto) (0-450) /uL Baso # (Auto) (0-100) /uL PT (10.1-12.7) SECONDS INR (0.9-1.3) APTT (26.4-36.2) SECONDS Sodium (137-145) mmol/L Potassium (3.4-5.1) mmol/L Chloride (98-107) mmol/L Carbon Dioxide (22-32) mmol/L BUN (7-17) mg/dL Creatinine (0.52-1.04) mg/dL Estimated GFR (>60) mL/min BUN/Creatinine Ratio (6-22) Glucose (80-110) mg/dL Lactate 2.3 H (0.7-2.1) mmol/L Calcium (8.4-10.2) mg/dL Total Bilirubin (0.2-1.3) mg/dL AST (14-36) IU/L ALT (<35) IU/L Alkaline Phosphatase (38-126) U/L Total Protein (6.3-8.2) g/dL Albumin (3.5-5.0) g/dL Globulin (1.7-4.1) g/dL Albumin/Globulin Ratio (1.0-2.8) Lipase (23-300) U/L Urine RBC (0-5/HPF) Urine WBC (0-5/HPF) Ur Squamous Epith Cells (0-5/HPF) Urine Bacteria (None) Hyaline Casts (None) Urine Mucus (Negative) Ur Culture Indicated? Salicylates (<20) mg/dL U Opiates 300ng/mL cut Negative (Negative) Ur Oxycodone Screen Negative (Negative) Urine Methadone Screen Negative (Negative) Acetaminophen (10-30) ug/mL Ur Barbiturates Screen Negative (Negative) U Tricyclic Antidepress Negative (Negative) Ur Phencyclidine Scrn Negative (Negative) Ur Amphetamines Screen Negative (Negative) U Methamphetamines Scrn Negative (Negative) Ur MDMA Scrn (Ecstasy) Negative (Negative) U Benzodiazepines Scrn Negative (Negative) Urine Cocaine Screen Negative (Negative) U Marijuana (THC) Screen Negative (Negative) Ethyl Alcohol ( - 10) mg/dL SARS-CoV-2 (PCR) Negative (Negative) Point of care testing: Urine Dip Bedside Urine Glucose Negative Bedside Urine Bilirubin - Negative Bedside Urine Ketone ++ 40 Urine Specific [place] 1.015 Bedside Urine Occult Blood + Bedside Urine pH 7.0 Bedside Urine Protein + 30 Bedside Urine Urobilinogen +/- 1mg Bedside Urine Nitrite - Negative Bedside Urine Leukocytes + 70 Esterase Discharge Plan Departure Patient Disposition: Admitted to Surgery Clinical Impression: Hydrops of gallbladder Admit Date/Time: 05/30/22 17:32 Admit Provider: Susan Rangel <Anson Calixto MD - Last Filed: 06/02/22 12:25> Cosign ED Attending Cosignature Attestation: I was immediately available for consultation of this patient was seen and evaluated by the APC in the department.
--- NOTE | 2022-05-30 13:44 | DI.US.S_ITS ---
PROCEDURE: US ABDOMEN LIMITED INDICATIONS: ABNORMAL GALLBLADDER ON CT TECHNIQUE: Real-time scanning was performed of the abdominal and retroperitoneal organs, with image documentation. COMPARISON: [facility], CT, CT ABDOMEN PELVIS W CON, 05/30/2022, 13:16. FINDINGS: Liver: Liver is normal in size and homogeneous in echotexture. Gallbladder: Gallbladder is hydropic with marked distension. Mobile area of increased echogenicity is noted within the neck measuring 1.7 cm. Wall thickness is normal measuring 1.5 mm. Biliary ducts: Intrahepatic bile ducts are non-dilated. Extrahepatic bile duct caliber is not well visualized. Normal is 6-7 mm or less in diameter, or 10 mm or less post-cholecystectomy. IMPRESSION: Hydropic appearing gallbladder with stone. No wall thickening. Dictated by: Yari Romano M.D. on 05/30/2022 at 14:39 Approved by: Yari Romano M.D. on 05/30/2022 at 14:40
[2022-05-30 14:40] LABS: INR 1.1 (0.9-1.3); Prothrombin Time 12.5 SECONDS (10.1-12.7)
[2022-05-30 14:43] LABS: PTT Partial Thromboplastin Tim 27 SECONDS (26.4-36.2)
[2022-05-30 14:46] LABS: Acetaminophen < 10 ug/mL (10-30); Ethanol (ETOH) < 10 mg/dL; Salicylate < 1.0 mg/dL (<20)
[2022-05-30 14:57] LABS: Reflexed Lactate in 2 Hours Y
[2022-05-30] MEDS: MORPHINE 4 MG/ML INJ IV (14:58)
--- NOTE | 2022-05-30 15:05 | DI.MRI.S_ITS ---
PROCEDURE: MR ABDOMEN WO CON/MRCP INDICATIONS: Gall stone TECHNIQUE: Coronal HASTE through the abdomen, axial 2-D FLASH in- and [id number], and breath-hold T2 FSE with fat saturation through the biliary system and pancreas. Oblique coronal and axial thin-slice HASTE, radial thick-slab HASTE centered on the extrahepatic bile ducts. COMPARISON: [facility], US, US ABDOMEN LIMITED, 05/30/2022, 13:57. [facility], CT, CT ABDOMEN PELVIS W CON, 05/30/2022, 13:16. [facility], CT, ABDOMEN/PELVIS WITH CONTRAST, 05/12/2017, 18:36. FINDINGS: Image quality: Excellent. Pancreas and biliary system: Extrahepatic duct is within normal limits. No intrahepatic biliary ductal dilatation. Pancreas demonstrates fatty atrophy, without adjacent soft tissue edema. Pancreatic duct is normal in caliber, without developmental anomalies. Gallbladder is distended. There is a larger gallstone measuring 1.3 cm. Probable additional small gallstone. No pericholecystic fluid. Cystic duct is prominent. Other solid organs: Liver is normal in size. Heterogeneous hepatic steatosis. Spleen is normal in size. No adrenal nodules. Both kidneys are normal in size, without hydronephrosis. Small bilateral peripelvic cysts. Nodes and vessels: No retroperitoneal or mesenteric adenopathy by size criteria. Aorta and inferior vena cava are normal in size. Bowel and peritoneum: Unenhanced bowel loops are normal in caliber. No free fluid. Lung bases: No basal pleural effusions. Heart size is normal. Bones and soft tissues: No ventral hernias. Bone marrow is of normal overall signal. IMPRESSION: 1. Distended gallbladder and cystic duct. Gallstone or gallstones are present. No pericholecystic fluid to suggest cholecystitis. HIDA scan could be considered for further evaluation. 2. No significant biliary ductal dilatation. No pancreatic ductal dilatation. 3. Heterogeneous hepatic steatosis. Dictated by: Judah Howell M.D. on 05/30/2022 at 16:00 Approved by: Judah Howell M.D. on 05/30/2022 at 16:11
[2022-05-30 15:20] LABS: UR Morphine/Opiate cutoff 300 Negative (Negative); Ur Creatinine Normal (Normal); Ur Specific Gravity Normal (Normal); Urine Amphetamines Negative (Negative); Urine Barbiturates Negative (Negative); Urine Benzodiazepines Negative (Negative); Urine Cocaine Negative (Negative); Urine MDMA Negative (Negative); Urine Methadone Negative (Negative); Urine Methamphetamines Negative (Negative); Urine Oxycodone Negative (Negative); Urine Phencyclidine Negative (Negative); Urine Tetrahydrocannabinol Negative (Negative); Urine Tricyclic Antidepressant Negative (Negative); Urine pH Normal (Normal)
[2022-05-30 15:24] LABS: Bacteria Urine Occasional (0-1); RBC Urine 0-1/HPF (0-5/HPF); Squamous Epithelial Cell Urine 1-5 /HPF (0-5/HPF); WBC Urine 5-10/HPF (0-5/HPF)
[2022-05-30 15:26] LABS: Culture Indicated Urine Specimen Cultured; Hyaline Casts Urine 0-1/LPF; Mucus Urine 2+ (Negative)
[2022-05-30 15:34] LABS: Lactate 2HR (Lactic Acid Rflx) 2.3 mmol/L (0.7-2.1)
[2022-05-30 15:36] LABS: COVID19 -Nasal RAPID Negative (Negative)
--- NOTE | 2022-05-30 17:26 | PC.NURSE ---
pt provided with meal tray; okay to eat per provider. NPO after midnight
[2022-05-30] MEDS: SCOPOLAMINE 1 PATCH TOP (19:01)
[2022-05-30] MEDS: LACTATED RINGERS 1,000 ML 100 ML IV (19:01)
[2022-05-30] MEDS: OXYCODONE IR 5 MG TABLET PO (19:25)
[2022-05-30] MEDS: GABAPENTIN 300 MG CAPSULE PO (21:32)
[2022-05-30] MEDS: CELECOXIB 200 MG CAPSULE PO (22:42)
[2022-05-31] MEDS: LACTATED RINGERS 1,000 ML 100 ML IV ×2 (05:21→15:29)
[2022-05-31 05:25] VITALS: BP 97/61; PULSE 64; RESP 16; TEMP 36.3; O2SAT 94
[2022-05-31 06:12] LABS: Add Manual Diff / Slide Review NO; Basophils Absolute Auto 0 /uL (0-100); Basophils Percent Auto 0.2 % (0-2); Eosinophils Absolute Auto 0 /uL (0-450); Eosinophils Percent Auto 0.1 % (2-4); Hematocrit 37.4 % (36-46); Hemoglobin 12.8 g/dL (12.0-16.0); Lymphocytes Absolute Auto 1300 /uL (1100-4500); Lymphocytes Percent Auto 5.3 % (25-40); Mean Corpuscular HGB Conc 34.3 % (30-36); Mean Corpuscular Hemoglobin 30.3 PG (26-34); Mean Corpuscular Volume 88.1 fL (80-100); Monocytes Absolute Auto 1000 /uL (0-900); Monocytes Percent Auto 4.1 % (3-14); Neutrophils Absolute Auto 22500 /uL (1500-7000); Neutrophils Percent Auto 90.3 % (50-75); Platelet Count 197 X10^3/uL (150-400); Red Blood Cell Count 4.24 X10^6/uL (4.0-5.2); Red Cell Distribution Width 13.2 % (11.6-14.8)
[2022-05-31 06:33] LABS: Alanine Aminotransferase 715 IU/L (<35); Albumin 3.6 g/dL (3.5-5.0); Albumin Globulin Ratio 1.2 (1.0-2.8); Alkaline Phosphatase 186 U/L (38-126); BUN Creatinine Ratio 20.2 (6-22); Bilirubin Total 3.9 mg/dL (0.2-1.3); Blood Urea Nitrogen 22 mg/dL (7-17); Calcium 8.5 mg/dL (8.4-10.2); Carbon Dioxide 30 mmol/L (22-32); Chloride 97 mmol/L (98-107); Estimated Glomerular Filt Rate 58 mL/min (>60); Glucose 121 mg/dL (80-110); HEMOLYSIS < 15 (0-50); Potassium 3.3 mmol/L (3.4-5.1); Sodium 136 mmol/L (137-145); Total Protein 6.6 g/dL (6.3-8.2)
[2022-05-31 06:39] LABS: Aspartate Aminotransferase 707 IU/L (14-36)
[2022-05-31] MEDS: metroNIDAZOLE 500 MG/100 ML PIGGYBACK 100 MG IV ×2 (06:57→15:29)
[2022-05-31] MEDS: levoFLOXacin 500 MG/100 ML PIGGYBACK 100 MG IV (08:26)
[2022-05-31] MEDS: SODIUM CHLORIDE 0.45% 500 ML 200 ML IV (08:37)
[2022-05-31 09:30] VITALS: BP 96/53; PULSE 57; RESP 18; TEMP 36.1; O2SAT 99
--- NOTE | 2022-05-31 13:16 | CM.DANOTE ---
DCP Assessment Patient is 61 y/o female who was admitted to due to concern for gull bladder blockage. Patient currently awaiting gull bladder surgery/ cholecystectomy by Dr. Rangel today. Patient has hx of chronic pain and fibromyalgia. Patient's PCP is Dr. Aly Ortega, patient has Medicare and for Life insurance. DRAINAGE ENGINEER enters room, and explains role to patient. Present in room with patient is spouse. Patient presents as A/Ox3 and states her pain is currently managed. Patient is currently NPO awaiting surgery today. Patient is indendent at baseline with ADLs and denies any DCP needs at this time. Patient endorses she resides at home with and he will be caring for as needed upon d/c. Plan: Patient awaiting gull bladder surgery, patient to d/c to home with spouse after surgery once medically clear. DCP to f/u with DCP needs after surgery as needed. DAMI Lieberman Discharge Planning/Care Management CM Discharge Assessment Start: 05/31/22 12:57 Freq: Status: Active Protocol: Document 05/31/22 12:58 LN (Rec: 05/31/22 13:15 LN [id number]) Discharge Planning Assessment Assigned [employer] DAMI Flynn Advance Directives? No History Provided By Patient,Family Member Has Patient been admitted in last 30 No days? Prior Living Arrangements House Household Members spouse Type of transporation used prior to Drives own vehicle admit Independent with ADL's Yes Is patient alert and oriented? Yes Please Provide Date Initial DC 05/31/22 Assessment Was Performed
[2022-05-31 13:23] VITALS: BP 88/50; PULSE 65; RESP 16; TEMP 36.8; O2SAT 97
[2022-05-31] MEDS: OXYCODONE IR 5 MG TABLET PO (13:27)
[2022-05-31 13:28] VITALS: BP 88/57
[2022-05-31] MEDS: POTASSIUM CHLORIDE 20 MEQ TAB 40 MEQ PO (13:35)
[2022-05-31 14:00] VITALS: BP 110/52
--- NOTE | 2022-05-31 15:15 | PC.NURSE ---
Addendum entered by Kaila Partida R.N. 05/31/22 17:28: Home instructions given w/understanding. Pt escorted by staff via W/C to waiting vehicle D/C in stable condition. Addendum entered by Kaila Partida R.N. 05/31/22 16:42: Dr Rangel in to see pt. Surgery rescheduled for Sunday, 06/02, check in at 1100 Pt D/C home until then HL D/C'd intact. Home instructions given w/understanding. Original Note: Pt resting at intervals SpO2 98% RA IVF LR infusing into the RAC @ 100cc/hr via pump w/o incidence. Pt NPO for surgery this afternoon. Call light w/in reach, bed alarm on for pt safety. Continue w/plan of care.
--- NOTE | 2022-05-31 16:44 | P.DS_ITS ---
History of Present Illness History of Present Illness Date Patient Seen: 05/31/22 Time Patient Seen: 16:45 Chief complaint: stomach pain Narrative: biliary obstruction resolving from spontaneous passing of gall stones. Needs Lap Oralia to prevent future episodes. On Cipro and Flagyl for transient ascending cholangitis. Discharge Providers Provider Date of admission: 05/30/22 17:32 Discharge Date: 05/31/22 Discharge provider: Susan Rangel MD Summary Hospital Course Discharge Diagnosis: Biliary obstruction and cholangitis resolving after spontaneous passage of stone. Hospital Course: Labs, IV antibiotic, hydration and pain control Status at Discharge Cognitive/behavioral status at discharge: at baseline, oriented Functional status at discharge: independent ambulation Overall status at discharge: patient is progressing back to baseline Time Spent with Patient Time spent: Greater than 30 minutes Exam Vital Signs (past 8 hours): - 05/31/22 09:30 05/31/22 13:23 05/31/22 13:28 Temperature 97.0 F L 98.2 F Pulse Rate 57 L 65 Respiratory Rate 18 16 Blood Pressure 96/53 L 88/50 L 88/57 L Pulse Oximetry 99 97 Oxygen Flow Rate 0 0 05/31/22 14:00 Temperature Pulse Rate Respiratory Rate Blood Pressure 110/52 L Pulse Oximetry Oxygen Flow Rate Oxygen Delivery Method Room Air Oxygen Flow Rate 0 Const General: cooperative and comfortable Nutritional Appearance: average body habitus HENMT Head: normocephalic and atraumatic Mouth: oral mucosae normal Eyes General: appearance normal, both eyes and all related structures Sclera: sclerae normal Neck Neck: trachea midline Chest Chest: normal inspection of the chest Resp Effort & Inspection: normal respiratory effort and able to speak in complete sentences Cardio Rate: bradycardic Rhythm: regular rhythm GI Palpation: soft and tender (mild mid epigastric) Skin General: turgor normal Neuro General: patient alert, patient awake and patient oriented x3 Cognition: normal cognition Extrem General: normal to inspection Psych Appearance: grossly normal Affect: normal affect Judgment: judgment good Objective Labs Result Diagrams: 05/31/22 05:58 05/31/22 05:58 Labs: Laboratory Results - last 24 hr 05/31/22 05/31/22 05:58 05:58 WBC 25.0 H D RBC 4.24 Hgb 12.8 Hct 37.4 MCV 88.1 MCH 30.3 MCHC 34.3 RDW 13.2 Plt Count 197 Neut % (Auto) 90.3 H Lymph % (Auto) 5.3 L [place] % (Auto) 4.1 Eos % (Auto) 0.1 L Baso % (Auto) 0.2 Neut # (Auto) 90977 H Lymph # (Auto) 1300 [place] # (Auto) 1000 H Eos # (Auto) 0 Baso # (Auto) 0 Sodium 136 L Potassium 3.3 L Chloride 97 L Carbon Dioxide 30 BUN 22 H Creatinine 1.09 H Estimated GFR 58 L BUN/Creatinine Ratio 20.2 Glucose 121 H Calcium 8.5 Total Bilirubin 3.9 H AST 707 H ALT 715 H Alkaline Phosphatase 186 H Total Protein 6.6 Albumin 3.6 Globulin 3.0 Albumin/Globulin Ratio 1.2 PFSH Medical History Fibromyalgia Social History household members: spouse Smoking Status: Never smoker alcohol intake: current Discharge Assessment & Plan Assessment and Plan Assessment: resolving biliary obstruction and ascending cholangitis Plan of Treatment: Home on cipro/flagyl, return Sunday for outpatient Lap Oralia Discharge Plan Discharge Plan Patient Disposition: Home Provider Discharge Comment: Return on Sunday for surgery as outpatient. 11am Discharge orders & Medications Prescriptions: New celecoxib [Celebrex] 200 mg Capsule 200 mg PO BID Qty: 10 0RF gabapentin [Neurontin] 300 mg Capsule 300 mg PO Q8HR Qty: 30 0RF oxycodone 5 mg Tablet 5 mg PO Q4HR PRN (Reason: Pain, Moderate (4-6)) Qty: 30 0RF ciprofloxacin HCl 750 mg tablet 750 mg PO BID Qty: 6 0RF metronidazole [Flagyl] 375 mg capsule 750 mg PO BID Qty: 6 0RF Rx Instructions: prefer Flagyl 500mg po TID if available. Continued oxycodone-acetaminophen 5-325 mg tablet 1 tab PO Q6H PRN (Reason: pain) Qty: 30 0RF chlorthalidone 25 mg tablet 25 mg PO DAILY Follow up/Referrals: Susan Rangel MD [Physician] - Diet/Activity/Treatments Diet: Low-fat Skin/Wound/Dressing Care Report to your healthcare provider any signs of infection, such as:: chills, fever, night sweats and increased pain Quality VTE Deep Vein Thrombosis/Pulmonary Embolism Present on Admission: No
--- NOTE | 2022-05-31 16:46 | PM.HP.1 ---
History of Present Illness History of Present Illness Date Patient Seen: 05/31/22 Time Patient Seen: 16:47 Chief complaint: stomach pain Narrative: biliary obstruction resolving from spontaneous passing of gall stones. Needs Lap Oralia to prevent future episodes. On Cipro and Flagyl for transient ascending cholangitis. Patient had 3 days of abdominal pain,worse last evening. Anorexia and h/o biliary colic . Patient History Medical History Fibromyalgia Family & Social History Social History: household members spouse Prior Living Arrangements House Safety & Behavioral: Feels Safe in Current Yes Environment Been Physically Hurt or No Threatened By a Person Tobacco & Substance use: Smoking Status Never smoker alcohol intake current alcohol intake frequency holiday/special occasion Substance Use Type does not use Meds Home Medications and Allergies Home Medications Medication Instructions Recorded Confirmed Type chlorthalidone 25 mg tablet 25 mg PO DAILY 09/12/21 05/31/22 History oxycodone-acetaminophen 5 mg-325 1 tab PO Q6H PRN pain #30 tabs 02/20/22 05/31/22 Rx mg tablet celecoxib 200 mg capsule (Celebrex) 200 mg PO BID #10 caps 05/31/22 Rx ciprofloxacin HCl 750 mg tablet 750 mg PO BID #6 tabs 05/31/22 Rx gabapentin 300 mg capsule 300 mg PO Q8HR #30 caps 05/31/22 Rx (Neurontin) metronidazole 375 mg capsule 750 mg PO BID #6 caps 05/31/22 Rx (Flagyl) oxycodone 5 mg tablet 5 mg PO Q4HR PRN Pain, Moderate 05/31/22 Rx (4-6) #30 tabs Allergies Allergy/AdvReac Type Severity Reaction Status Date / Time losartan Allergy Unknown Verified 05/30/22 11:56 Sulfa (Sulfonamide Allergy Unknown SWELLING Verified 05/30/22 11:56 Antibiotics) [SULFA (SULFONAMIDE ANTIBIOTICS)] lisinopril AdvReac Cough Verified 05/30/22 11:56 Review of Systems Review of Systems ROS: Yes All systems reviewed with the patient and are negative except as otherwise documented Exam Vital Signs (past 8 hours): - 05/31/22 09:30 05/31/22 13:23 05/31/22 13:28 Temperature 97.0 F L 98.2 F Pulse Rate 57 L 65 Respiratory Rate 18 16 Blood Pressure 96/53 L 88/50 L 88/57 L Pulse Oximetry 99 97 Oxygen Flow Rate 0 0 05/31/22 14:00 Temperature Pulse Rate Respiratory Rate Blood Pressure 110/52 L Pulse Oximetry Oxygen Flow Rate Oxygen Delivery Method Room Air Oxygen Flow Rate 0 Narrative Exam Narrative: feeling better and hungry Const General: cooperative and healthy appearing Nutritional Appearance: well nourished [facility] Head: normocephalic and atraumatic Eyes General: appearance normal, both eyes and all related structures Sclera: sclerae normal Neck Neck: normal visual inspection Chest Chest: normal inspection of the chest Resp Effort & Inspection: normal respiratory effort and able to speak in complete sentences Cardio Rate: bradycardic (1st degree heart block) Rhythm: regular rhythm GI Inspection: normal to inspection Palpation: soft Other: mild tenderness Skin General: no rashes or lesions noted Neuro General: patient alert, patient awake and patient oriented x3 Extrem General: full ROM Psych Appearance: grossly normal Mental Status: mental status grossly normal Judgment: judgment good Objective Labs Result Diagrams: 05/31/22 05:58 05/31/22 05:58 Labs: Laboratory Results - last 24 hr 05/31/22 05/31/22 05:58 05:58 WBC 25.0 H D RBC 4.24 Hgb 12.8 Hct 37.4 MCV 88.1 MCH 30.3 MCHC 34.3 RDW 13.2 Plt Count 197 Neut % (Auto) 90.3 H Lymph % (Auto) 5.3 L [place] % (Auto) 4.1 Eos % (Auto) 0.1 L Baso % (Auto) 0.2 Neut # (Auto) 57727 H Lymph # (Auto) 1300 [place] # (Auto) 1000 H Eos # (Auto) 0 Baso # (Auto) 0 Sodium 136 L Potassium 3.3 L Chloride 97 L Carbon Dioxide 30 BUN 22 H Creatinine 1.09 H Estimated GFR 58 L BUN/Creatinine Ratio 20.2 Glucose 121 H Calcium 8.5 Total Bilirubin 3.9 H AST 707 H ALT 715 H Alkaline Phosphatase 186 H Total Protein 6.6 Albumin 3.6 Globulin 3.0 Albumin/Globulin Ratio 1.2 Assessment & Plan Assessment & Plan narrative: Gallstones transient biliary obstruction transient ascending cholangitis Plan: Discharge home with molly and reyes, follow up Sunday for outpatient Lap Oralia. time spent reviewing the surgical procedure and expectations. What to watch for between now and Sunday. COVID-19 COVID-19 status: Negative Time Spent With Patient Time with patient: 50 to 69 minutes with 50% spent counseling/coordinating care Critical Care time: I spent a total of [] minutes of critical care time on this patient's care today; this time is exclusive of procedural time. Quality VTE Deep Vein Thrombosis/Pulmonary Embolism Present on Admission: No
[2022-05-31 17:06] VITALS: BP 99/56; PULSE 69; RESP 18; TEMP 37.2; O2SAT 97
== END 2022-05-31 17:15 | disposition home or self-care (01) | DRG 445 ==
LOC: ED 17:27 → AC 17:33
PROVIDERS: Family Medicine Addiction Medicine; Admitting Provider Surgery; Emergency Provider Student in an Organized Health Care Education/Training Program; Referring Provider Student in an Organized Health Care Education/Training Program; Visit Provider Surgery
DX: K80.21 Calculus of gallbladder without cholecystitis with obstruction (principal); K83.09 Other cholangitis; K82.1 Hydrops of gallbladder; R00.1 Bradycardia, unspecified; Z20.822 Contact with and (suspected) exposure to COVID-19
CPT/HCPCS: 36415; 74177; 74181; 76705; 80053; 80305; 80320; 80329; 81003; 81015; 83605; 83690; 85025; 85610; 85730; 87086; 87635; 93005; 93010; 96361; 96374; 96375; 99238; 99284; C9803; G0480; J1885; J1956; J2270; J2405; J7050; Q9967

== ENCOUNTER 2022-06-02 10:39 | Day surgery (SDC) | payer MEDICARE, OTHER, SELFPAY ==
[2022-05-30 17:38] VITALS: BMI 29.7
[2022-06-02] VITALS (8 sets, daily range): BP systolic 112–145; BP diastolic 64–89; PULSE 61–90; RESP 14–20; TEMP 36.6–37.7; O2SAT 96–100; BMI 29.2
--- NOTE | 2022-06-02 | PATH_ITS ---
[facility] Accession Number: [id number] . 01 Material submitted: . gallbladder - GALLBLADDER . 01 Diagnosis: Gallbladder, Cholecystectomy: Acute cholecystitis with focal benign intestinal metaplasia and cholelithiasis. Abundant intramural eosinophiles, non-specific. MRV 06/05/2022 1459 Local . 01 Electronically signed: . Alecia Pryor MD, Pathologist NPI- [id number] . 01 Gross description: . Received in formalin in a specimen container, labeled with the patient's name and medical record number, gallbladder, is an intact gallbladder specimen with a stapled resection margin. The specimen measures 11.5 x 3.5 x 3.5 cm. The stapled resection margin measures 0.4 cm in diameter and is inked blue. The serosal surface is pink, smooth, and glistening. The specimen is opened to reveal green, velvety, slightly textured mucosa. Average wall thickness is 0.2 cm. A single dark brown calculus is identified within the cavity that measures 1.5 cm in diameter. No other distinct lesions are grossly identified within the specimen cut surfaces. Head Librarian sections are submitted in cassette A1. ([id number]) /FRR 06/03/2022 1051 Local . 01 Pathologist provided ICD-10: K81.9, K80.60 . 01 CPT . 061817 Specimen Comment: A courtesy copy of this report has been sent to [phone] Performed at: 01 [facility] [address] [place] [address], [place], [place] [id number] MD Ricki Wilson MD Phone: [phone]
[2022-06-02] MEDS: LACTATED RINGERS 1,000 ML 42 ML IV (11:27)
--- NOTE | 2022-06-02 12:07 | PM.PREOP ---
Pre-operative Note COVID-19 COVID-19 status: Negative Criteria for continued procedure: Possibility delay results in more complex future surgery or treatment Interval Note History & Physical reviewed/Exam performed by Physician: Yes Changes to H&P: No
--- NOTE | 2022-06-02 13:56 | SUR.OPER ---
Supine on padded OR bed, head on pillow, safety belt at thigh, Bilateral arms secured on padded arm board <90 degrees abduction. Legs uncrossed. Tape over blanket to secure lower legs. Gel pad placed under bilateral heels.
[2022-06-02] MEDS: EPINEPHrine 1 MG/ML 0.15 MG INJ (14:02)
[2022-06-02] MEDS: BUPIVACAINE 0.5% (PF) VIAL 30 ML INJ (14:03)
--- NOTE | 2022-06-02 14:19 | PM.OP.1 ---
Operative Date/Time/Diagnoses Date of procedure: 06/02/22 Time of procedure: 14:19 Pre-op diagnosis: Biliary obstruction spontaneously resolving with remaining gallstones in the gallbladder Post-op diagnosis: same Procedure & Clinicians Procedure: Laparoscopic cholecystectomy Same procedure as scheduled: Yes Indications: Recent passage of stone causing acute cholangitis the spontaneously resolved. Surgeon: Susan Rangel Click Yes if Unassisted: Yes Anesthesia Type: General Operative Notes Findings: Normal anatomy. Mildly edematous gallbladder Closure Type: primary Specimen(s): other (Gallbladder) Estimated Blood Loss (mL): 40 Procedure in detail: Preop diagnosis: Gallstones Postop diagnosis: Same Operative procedure: Laparoscopic cholecystectomy Surgeon: Nancy Rangel MD Anesthetic: General with ET tube intubation along with local Findings: Normal anatomy. Slightly edematous gallbladder. Procedure: Patient placed in a supine position. Prepped and draped in sterile fashion expose her abdomen. Using open technique a 12 mm port was placed in the infraumbilical site. Insufflation began all other ports were placed under direct vision including a 10 mm port the midepigastrium and 2 5 mm ports in the right lateral abdomen. Gallbladder was grasped pushed cephalad for exposure. Cystic duct was identified, clipped once distally, twice proximally and transected. Cystic artery was identified clipped once distally twice proximally transected. Gallbladder is removed from the fossa bed was some bleeding at the liver bed site. Hemostasis was achieved with electrocautery, direct pressure, Surgicel x3. I then placed the gallbladder into an Endo-Catch bag after it been completely removed from the fossa bed and pulled through the infraumbilical port site intact. I surveyed the abdomen for hemostasis. I then removed all ports and began closure. Closure consisted of 0 Vicryl for fascial closure the infraumbilical port site. Skin was closed a running 4-0 Vicryl. Steri-Strips and sterile dressings were placed. Patient was awakened, extubated, taken to recovery room in stable condition. Needle, instrument, sponge counts were correct. Blood loss: 40 mL Specimen: Gallbladder Complications: none Post-operative Condition: stable Disposition: PACU
[2022-06-02] MEDS: fentaNYL 100 MCG/2 ML INJ IV ×2 (14:36→14:51)
[2022-06-02] MEDS: OXYCODONE/ACETAMINOPHEN 5/325 TABLET 1 TAB PO (15:03)
--- NOTE | 2022-06-02 15:33 | SUR.PHASEII ---
1525: Pt A&Ox4, dressings c\d\i, reports pain as tolerable, ready and desires to discharge home. Discharge instructions reviewed with patient and spouse, written copy given to spouse. IV D/C'd intact, dressing applied. Pt voided, then this RN transported pt via w/c to ER entrance to meet spouse who will transport patient home.
== END 2022-06-02 15:25 | disposition home or self-care (01) ==
PROVIDERS: Referring Provider Surgery; Visit Provider Surgery
PROC: 0FT44ZZ Resection of Gallbladder, Percutaneous Endoscopic Approach (ICD-10-PCS; CPT 47562; principal; 2022-06-02 12:15)
DX: K80.20 Calculus of gallbladder without cholecystitis without obstruction (principal); I10 Essential (primary) hypertension
CPT/HCPCS: 47562; J0171; J3010

== ENCOUNTER → 2023-04-17 11:12 | Outpatient (CLI) | payer MEDICARE, OTHER, SELFPAY ==
[2022-05-30 17:38] VITALS: BMI 29.7
--- NOTE | 2023-04-17 | DI.MRI.S_ITS ---
PROCEDURE: MR LUMBAR SPINE WO CON INDICATIONS: LOW BACK PAIN / PARESTHESIA OF SKIN TECHNIQUE: Noncontrast sagittal T1 spin echo and T2 fast echo, sagittal STIR, and T2 fast spin echo through the lumbar spine. In cases with scoliosis, additional coronal T2 fast spin echo may be performed. COMPARISON: [facility], , L-SPINE WITHOUT CONTRAST, 10/11/2009, 12:50. FINDINGS: Image quality: Excellent. Alignment and Curvature: There is normal bony alignment. Bone Marrow: Marrow is of normal overall signal. No acute vertebral body compression fractures. Spinal Cord: Conus medullaris terminates at the L1 level. Visualized cord demonstrates normal signal and size. Paraspinous Soft Tissues: No paravertebral masses. T12-L1: No significant neuroforaminal or spinal canal stenosis. L1-L2: Minimal disc bulge. Minimal bilateral facet arthropathy. No significant neuroforaminal or spinal canal stenosis. L2-L3: Minimal disc bulge. Mild bilateral facet arthropathy. No significant neuroforaminal or spinal canal stenosis. L3-L4: Symmetric disc bulge. Bilateral facet arthropathy. Minimal ligamentum flavum hypertrophy. No significant spinal canal stenosis. Minimal right and mild left bilateral neuroforaminal stenosis. L4-L5: Symmetric disc bulge. Minimal loss of disc signal intensity. Moderate bilateral facet arthropathy. Ligamentum flavum hypertrophy. Mild epidural lipomatosis. There is resulting mild effacement of the anterior thecal sac . Mild spinal canal stenosis. Moderate bilateral neural foraminal stenosis. L5-S1: There is loss of disc signal intensity. Moderate disc space loss. Moderate degenerative endplate changes and endplate osteophyte formation. Symmetric disc bulge. Moderate bilateral facet arthropathy. Suspected small posterior annular fibrosus fissure. There is effacement of the subarticular zone bilaterally. Moderate-severe right and severe left bilateral neuroforaminal stenosis. No significant spinal canal stenosis. IMPRESSION: Multilevel, multifactorial spondylosis of the lumbar spine as detailed above by vertebral body level. Findings are again most severe at L5-S1. Overall, there has been interval progression of spondylitic changes seen throughout the lumbar spine as detailed above. No acute abnormality seen. Approved by: Aly Rogers M.D. on 04/17/2023 at 17:28
== END ==
PROVIDERS: PCP Family Medicine; Referring Provider Family Medicine; Visit Provider Family Medicine
DX: M47.816 Spondylosis without myelopathy or radiculopathy, lumbar region (principal); M47.817 Spondylosis without myelopathy or radiculopathy, lumbosacral region; M54.50 Low back pain, unspecified; R20.2 Paresthesia of skin
CPT/HCPCS: 72148

== ENCOUNTER 2023-09-26 15:07 | Outpatient (CLI) | payer MEDICARE, OTHER, SELFPAY ==
[2022-05-30 17:38] VITALS: BMI 29.7
[2023-09-26] VITALS (9 sets, daily range): BP systolic 120–145; BP diastolic 73–91; PULSE 70–84; RESP 16–26; TEMP 36.7; O2SAT 92–98
--- NOTE | 2023-09-26 15:09 | DI.RAD.S_ITS ---
PROCEDURE: PAIN L/S TRANSFORAM INJECT ROJAS COMPARISON: None. INDICATIONS: Radiculopathy FINDINGS: Intraoperative fluoroscopic views demonstrating transforaminal epidural steroid injection. IMPRESSION: Intraoperative fluoroscopic views demonstrating transforaminal epidural steroid injection. Dictated by: Seb Lopez M.D. on 09/26/2023 at 17:51 Approved by: Seb Lopez M.D. on 09/26/2023 at 17:52
[2023-09-26] MEDS: MIDAZOLAM 2 MG/2 ML VIAL 1 MG IV (16:18)
[2023-09-26] MEDS: iopamidoL 15 ML VIAL 3 ML INJ (16:20)
[2023-09-26] MEDS: DEXAMETHASONE 10 MG/ML VIAL INJ (16:21)
[2023-09-26] MEDS: MIDAZOLAM 5 MG/ML VIAL 1 MG IV (16:24)
--- NOTE | 2023-09-26 16:39 | P.PCN_ITS ---
Date/Time/Diagnoses Date of procedure: 09/26/23 Time of procedure: 16:00 Procedure Notes Physician: Waldemar Padron Total Fluoroscopy time (seconds): 29 Total sedation minutes: 16 Procedure in detail & Post-procedure care: Bilateral L5-S1 Transforaminal Epidural Steroid Injection Indications: Dayna is presenting for treatment of lumbar radiculopathy with low back and leg pain. Preoperative diagnosis: Lumbar radiculopathy Postoperative diagnosis: Same Focused Examination: Ax3 Mood and affect are normal Vital Signs: VSS ASA: 2 Consent: Following review of allergies and potential side effects/complications, including, but not necessarily limited to, infection, allergic reaction, local tissue breakdown, stroke, temporary or permanent nerve injury, paralysis, and possible , the patient indicated that they understood and agreed to proceed.? An informed consent document was signed by the patient, witnessed by a nurse and placed in the patient's chart.? Additionally, other treatment options including medications and physical therapy were reviewed with the patient. All questions were answered. Site was then marked. Anesthesia: After review of previous anesthetic history and IV conscious sed ation, the patient was deemed safe to proceed with today's procedure with IV conscious sedation. IV sedation was accomplished with midazolam 2 mg administered by the RN after order by Dr. Padron. Sedation was titrated to patient comfort during the course of the procedure. Patient remained responsive to all verbal commands. Position: Prone Monitoring: NIBP, Pulse oximetry, 3 lead EKG Needle used: 22G 5 inch spinal needle Contrast: Isovue 300M Injectate: 7.5 mg Dexamethasone mixed with 1% lidocaine 1 ml and normal saline 1 mL Technique: The skin was prepped with chloraprep and draped in a sterile fashion. Time out was performed as per protocol. Oxygen applied via NC. Skin and subcutaneous structures of the needle entry site were infiltrated with 3mL of lidocaine 1%. Under fluoroscopic guidance, using an ipsilateral oblique view,?a 22 gauge 5 inch needle was advanced to the base of the right L5?pedicle.? The needle was advanced to the superio-posterior aspect of the neural foramen under lateral view.? Oblique and AP views were rechecked. No paresthesias noted by the patient during needle placement. In AP view and utilizing real-time digital subtraction fluoroscopy, 2 ml contrast was slowly injected. Epidural spread was observed without evidence for intravascular nor intrathecal uptake. Contrast spread was seen craniocaudally. The above injectate was then administered without paresthesias and the needle was subsequently withdrawn. Under fluoroscopic guidance, using an ipsilateral oblique view,?a 22 gauge 5 inch needle was advanced to the base of the left L5?pedicle.? The needle was advanced to the superio-posterior aspect of the neural foramen under lateral view.? Oblique and AP views were rechecked. No paresthesias noted by the patient during needle placement. In AP view and utilizing real-time digital subtraction fluoroscopy, 2 ml contrast was slowly injected. Epidural spread was observed without evidence for intravascular nor intrathecal uptake. Contrast spread was seen craniocaudally. The above injectate was then administered without paresthesias and the needle was subsequently withdrawn.Band-Aids applied to injection sites. EBL: less than 1 ml Complications: None Post Procedure: Patient was taken to the recovery and monitored. The patient was provided a Pain Log to continue to record the patient's response to the target- specific procedure prior to the patient's follow-up visit with the referring physician. Patient was stable upon discharge. Detailed post procedure instructions were provided. Patient was asked to call in the event of worsening pain, fever, weakness, numbness or bladder or bowel incontinence.
== END 2023-09-26 16:59 | disposition home or self-care (01) ==
LOC: RAD 15:08
PROVIDERS: PCP Family Medicine; Referring Provider Anesthesiology; Visit Provider Anesthesiology
DX: M54.16 Radiculopathy, lumbar region (principal)
CPT/HCPCS: 64483; 99152; J1100; J2250

== ENCOUNTER 2023-12-26 07:24 | Outpatient (CLI) | payer MEDICARE, OTHER, SELFPAY ==
[2022-05-30 17:38] VITALS: BMI 29.7
[2023-12-26] VITALS (8 sets, daily range): BP systolic 117–133; BP diastolic 62–86; PULSE 60–81; RESP 14–19; TEMP 36.2; O2SAT 95–98
[2023-12-26] MEDS: MIDAZOLAM 2 MG/2 ML VIAL IV (08:29)
--- NOTE | 2023-12-26 08:30 | DI.RAD.S_ITS ---
PROCEDURE: PAIN L/S TRANSFORAM INJECT ROJAS COMPARISON: [facility], , PAIN L/S TRANSFORAM INJECT ROJAS, 09/26/2023, 17:21. INDICATIONS: radiculopathy FINDINGS: Intra procedural examination demonstrating appropriate positions of the needles at L5-S1 bilaterally for pain injection. IMPRESSION: Intra procedural examination demonstrating appropriate positions of the needles. Dictated by: Santos Bonilla M.D. on 12/26/2023 at 9:20 Approved by: Santos Bonilla M.D. on 12/26/2023 at 9:21
[2023-12-26] MEDS: iopamidoL 15 ML VIAL 3 ML INJ (08:33)
[2023-12-26] MEDS: DEXAMETHASONE 10 MG/ML VIAL 20 MG INJ (08:33)
--- NOTE | 2023-12-26 11:21 | P.PCN_ITS ---
Date/Time/Diagnoses Date of procedure: 12/26/23 Time of procedure: 08:30 Procedure Notes Physician: Waldemar Padron Total Fluoroscopy time (seconds): 29 Total sedation minutes: 17 Procedure in detail & Post-procedure care: Bilateral L5-S1 Transforaminal Epidural Steroid Injection Indications: Dayna is presenting for treatment of lumbar radiculopathy with low back and leg pain. Preoperative diagnosis: Lumbar radiculopathy Postoperative diagnosis: Same Focused Examination: Ax3 Mood and affect are normal Vital Signs: VSS ASA: 2 Consent: Following review of allergies and potential side effects/complications, including, but not necessarily limited to, infection, allergic reaction, local tissue breakdown, stroke, temporary or permanent nerve injury, paralysis, and possible , the patient indicated that they understood and agreed to proceed.? An informed consent document was signed by the patient, witnessed by a nurse and placed in the patient's chart.? Additionally, other treatment options including medications and physical therapy were reviewed with the patient. All questions were answered. Site was then marked. Anesthesia: After review of previous anesthetic history and IV conscious sed ation, the patient was deemed safe to proceed with today's procedure with IV conscious sedation. IV sedation was accomplished with midazolam 2 mg administered by the RN after order by Dr. Padron. Sedation was titrated to patient comfort during the course of the procedure. Patient remained responsive to all verbal commands. Position: Prone Monitoring: NIBP, Pulse oximetry, 3 lead EKG Needle used: 22G, 5 inch spinal needle Contrast: Isovue 300M Injectate: 7.5 mg Dexamethasone mixed with 1% lidocaine 1 ml and normal saline 1 mL per side Technique: The skin was prepped with chloraprep and draped in a sterile fashion. Time out was performed as per protocol. Oxygen applied via NC. Skin and subcutaneous structures of the needle entry site were infiltrated with 3mL of lidocaine 1%. Under fluoroscopic guidance, using an ipsilateral oblique view,?a 22 gauge 5 inch needle was advanced to the base of the right L5-S1?pedicle.? The needle was advanced to the superio-posterior aspect of the neural foramen under lateral view.? Oblique and AP views were rechecked. No paresthesias noted by the patient during needle placement. In AP view and utilizing real-time digital subtraction fluoroscopy, 2 ml contrast was slowly injected. Epidural spread was observed without evidence for intravascular nor intrathecal uptake. Contrast spread was seen craniocaudally. The above injectate was then administered wit hout paresthesias and the needle was subsequently withdrawn. Under fluoroscopic guidance, using an ipsilateral oblique view,?a 22 gauge 5 inch needle was advanced to the base of the left L5-S1?pedicle.? The needle was advanced to the superio-posterior aspect of the neural foramen under lateral view.? Oblique and AP views were rechecked. No paresthesias noted by the patient during needle placement. In AP view and utilizing real-time digital subtraction fluoroscopy, 2 ml contrast was slowly injected. Epidural spread was observed without evidence for intravascular nor intrathecal uptake. Contrast spread was seen craniocaudally. The above injectate was then administered without paresthesias and the needle was subsequently withdrawn. Band-Aids applied to injection sites. EBL: less than 1 ml Complications: None Post Procedure: Patient was taken to the recovery and monitored. The patient was provided a Pain Log to continue to record the patient's response to the target- specific procedure prior to the patient's follow-up visit with the referring physician. Patient was stable upon discharge. Detailed post procedure instructions were provided. Patient was asked to call in the event of worsening pain, fever, weakness, numbness or bladder or bowel incontinence.
== END 2023-12-26 09:04 | disposition home or self-care (01) ==
PROVIDERS: PCP Family Medicine; Referring Provider Anesthesiology; Visit Provider Anesthesiology
DX: M54.16 Radiculopathy, lumbar region (principal)
CPT/HCPCS: 64483; 99152; J1100; J2250

== ENCOUNTER 2024-02-13 10:23 | Outpatient (CLI) | payer MEDICARE, OTHER, SELFPAY ==
[2022-05-30 17:38] VITALS: BMI 29.7
[2024-02-13] VITALS (8 sets, daily range): BP systolic 105–155; BP diastolic 0–83; PULSE 61–72; RESP 15–20; TEMP 36.1; O2SAT 95–98
--- NOTE | 2024-02-13 10:25 | DI.RAD.S_ITS ---
PROCEDURE: PAIN L INTERLAMINAR/CAUDAL INJ INDICATIONS: Radiculopathy COMPARISON: None. FINDINGS: Fluoroscopic spot filming was performed to verify placement of spinal needles at the L5-S1 level(s), as labeled on the films IMPRESSION: Fluoroscopic imaging provided for epidural pain injection performed by the interventional pain physician. Dictated by: Srinivasan Rodríguez M.D. on 02/13/2024 at 16:11 Approved by: Srinivasan Rodríguez M.D. on 02/13/2024 at 16:13
[2024-02-13] MEDS: MIDAZOLAM 2 MG/2 ML VIAL IV (10:47)
[2024-02-13] MEDS: DEXAMETHASONE 10 MG/ML VIAL INJ (10:50)
[2024-02-13] MEDS: iopamidoL 15 ML VIAL 3 ML INJ (10:51)
--- NOTE | 2024-02-13 11:07 | P.PCN_ITS ---
Date/Time/Diagnoses Date of procedure: 02/13/24 Time of procedure: 11:00 Procedure Notes Physician: Waldemar Padron Total Fluoroscopy time (seconds): 14 Total sedation minutes: 10 Procedure in detail & Post-procedure care: L5-S1 Interlaminar Epidural Steroid Injection Indications: Dayna is presenting for treatment of lumbar radiculopathy with low back and leg pain. Preoperative diagnosis: Lumbar radiculopathy Postoperative diagnosis: Same Focused Examination: Ax3 Mood and affect are normal Vital Signs: VSS ASA: 2 Consent: Following review of allergies and potential side effects/complications, including, but not necessarily limited to, infection, allergic reaction, local tissue breakdown, stroke, temporary or permanent nerve injury, paralysis, and possible , the patient indicated that they understood and agreed to proceed.? An informed consent document was signed by the patient, witnessed by a nurse and placed in the patient's chart.? Additionally, other treatment options including medications and physical therapy were reviewed with the patient. All questions were answered. Site was then marked. Anesthesia: After review of previous anesthetic history and IV conscious sedation, the patient was deemed safe to proceed with today's procedure with IV conscious sedation. IV sedation was accomplished with midazolam 2 mg administered by the RN after order by Dr. Padron. Sedation was titrated to patient comfort during the course of the procedure. Patient remained responsive to all verbal commands. Position: Prone Monitoring: NIBP, Pulse oximetry, 3 lead EKG Needle used: 18 G 3.5? Tuohy Contrast: Isovue 300M Injectate: Dexamethasone 10 mg with 1% lidocaine 2 mL Technique: The skin was prepped with chloraprep and then draped in a sterile fashion. Time out was performed as per protocol. Oxygen applied via NC. Skin and subcutaneous structures of the needle entry site was then infiltrated with 3 mL of lidocaine 1%. Under AP, lateral and contralateral oblique fluoroscopic control, the Tuohy needle was guided into the L5-S1 epidural space. The space was accessed with loss of resistance technique. Isovue 300M was then injected and the spread was consistent with the epidural space. There was no evidence for intravascular or intrathecal uptake. After negative aspiration, the above- mentioned injectate was then slowly administered and the needle withdrawn. The patient expressed no unusual discomfort or paresthesias during the injection. Band-Aids applied to injection sites. EBL: less than 1 ml Complications: None Post Procedure: Patient was taken to the recovery and monitored. The patient was provided a Pain Log to continue to record the patient's response to the target- specific procedure prior to the patient's follow-up visit with the referring physician. Patient was stable upon discharge. Detailed post procedure instructions were provided. Patient was asked to call in the event of worsening pain, fever, weakness, numbness or bladder or bowel incontinence.
== END 2024-02-13 11:18 | disposition home or self-care (01) ==
LOC: RAD 10:24
PROVIDERS: PCP Family Medicine; Referring Provider Anesthesiology; Visit Provider Anesthesiology
DX: M54.16 Radiculopathy, lumbar region (principal)
CPT/HCPCS: 62323; 99152; J1100; J2250

== ENCOUNTER 2024-03-29 11:08 | Emergency (ER) | payer MEDICARE, OTHER, SELFPAY ==
[2022-05-30 17:38] VITALS: BMI 29.7
[2024-03-29 11:13] VITALS: BP 144/78; PULSE 71; RESP 17; TEMP 36.5; O2SAT 98; BMI 30.8
--- NOTE | 2024-03-29 11:18 | ED_ITS ---
HPI - Back Pain/Injury <Fito Melissa PA-C - Last Filed: 03/29/24 13:42> General Chief Complaint: Back Pain/Injury Stated Complaint: body aches Time Seen by Provider: 03/29/24 11:18 Source: patient History of Present Illness HPI Narrative: This is a 63-year-old female presents emergency department due to back pain in the began 3 days ago which has now radiated around to her abdomen. She states that she has a history of chronic lower back pain and needs effusion but does not report that this pain being similar. She denies any fevers, nausea, vomiting, diarrhea, chest pain, shortness of breath, vaginal discharge, dysuria, or any other concerning signs or symptoms. History of cholecystectomy. Related Data Home Medications Medication Instructions Recorded Confirmed chlorthalidone 25 mg tablet 25 mg PO DAILY 09/12/21 03/17/24 cholecalciferol (vitamin D3) 25 25 mcg PO DAILY 08/28/23 03/17/24 mcg (1,000 unit) capsule albuterol sulfate 90 mcg/actuation inhalation 12/18/23 03/17/24 aerosol inhaler (ProAir HFA) colchicine 0.6 mg tablet (Colcrys) mg PO 12/18/23 03/17/24 cyclobenzaprine 10 mg tablet 10 mg PO ONCE PM 12/18/23 03/17/24 trazodone 100 mg tablet 100 mg PO ONCE PM 01/29/24 03/17/24 omeprazole 20 mg capsule,delayed 20 mg PO BID 03/17/24 03/17/24 release Previous Rx's Medication Instructions Recorded pregabalin 50 mg capsule 50 mg PO BID #60 caps 03/17/24 cyclobenzaprine 10 mg tablet 10 mg PO TID PRN muscle spasm #30 03/29/24 tabs Allergies Allergy/AdvReac Type Severity Reaction Status Date / Time Sulfa (Sulfonamide Allergy Unknown SWELLING Verified 03/29/24 11:13 Antibiotics) [SULFA (SULFONAMIDE ANTIBIOTICS)] losartan AdvReac Unknown Cough Verified 03/29/24 11:13 lisinopril AdvReac Cough Verified 03/29/24 11:13 Review of Systems <Fito Melissa PA-C - Last Filed: 03/29/24 13:42> Review of Systems Narrative: GENERAL: Denies chills, fatigue, malaise, fever, sweats. HEENT: Denies sinus pain, ear pain, sore throat, difficulty swallowing, dizziness. RESPIRATORY: Denies dyspnea, cough, wheezing, hemoptysis, sputum. CARDIOVASCULAR: Denies chest pain, palpitations, orthopnea, edema, GASTROINTESTINAL: Reports abdominal pain, denies nausea or vomiting : Denies dysuria, frequency, incontinence, hematuria, urinary retention. MUSCULOSKELETAL: Reports lower back pain SKIN: Denies rash, skin lesions, or other NEUROLOGIC: Denies weakness, headache, numbness, change in speech, confusion, seizures, incoordination. PSYCHIATRIC: No concerning psychosocial issues. 12 point review of systems is negative except for those stated above Patient History <Fito Melissa PA-C - Last Filed: 03/29/24 13:42> Medical History Lumbar spondylosis Lumbar foraminal stenosis Dorsalgia Lumbar radiculopathy Hypertension Asthma Arthritis Fibromyalgia Social History household members: spouse Smoking Status: Never smoker alcohol intake: current Smoking Status: Never smoker alcohol intake frequency: holidays/special occasions only Substance Use Type: does not use Exam <Fito Melissa PA-C - Last Filed: 03/29/24 13:42> Narrative Exam Narrative: GENERAL: Well-developed patient, in mild distress. HEAD: Atraumatic. Normocephalic. EYES: Pupils equal round and reactive. Extraocular motions intact. No scleral icterus. No injection or drainage. ENT: Nose without bleeding, purulent drainage. Throat without erythema, tonsillar hypertrophy or exudate. Airway patent. NECK: Trachea midline. Non tender EXTREMITIES: No edema or joint tenderness. NEURO: AOx3. SKIN: No rash or erythema of visible areas Abdomen: Tenderness to palpation to the suprapubic area, nondistended Back: Tenderness to palpation to the bilateral lumbar paraspinals Initial Vital Signs Initial Vital Signs: Vital Signs Temperature 97.7 F 03/29/24 11:13 Pulse Rate 71 03/29/24 11:13 Respiratory Rate 17 03/29/24 11:13 Blood Pressure 144/78 H 03/29/24 11:13 Pulse Oximetry 98 03/29/24 11:13 Oxygen Delivery Method Room Air 03/29/24 11:13 <Mariana Diaz DO - Last Filed: 03/30/24 07:07> Initial Vital Signs Initial Vital Signs: Vital Signs Temperature 97.7 F 03/29/24 11:13 Pulse Rate 71 03/29/24 11:13 Respiratory Rate 17 03/29/24 11:13 Blood Pressure 144/78 H 03/29/24 11:13 Pulse Oximetry 98 03/29/24 11:13 Oxygen Delivery Method Room Air 03/29/24 11:13 Course <Fito Melissa PA-C - Last Filed: 03/29/24 13:42> Orders Ordered: Discontinued Medications Ketorolac Tromethamine (Ketorolac 30 Mg/Ml Vial) 15 mg IM NOW ONE Stop: 03/29/24 13:14 Last Admin: 03/29/24 13:36 Dose: 15 mg Documented By: NL Potassium Chloride (Potassium Chloride 20 Meq/15 Ml Udc) 20 meq PO NOW ONE Stop: 03/29/24 13:12 Last Admin: 03/29/24 13:36 Dose: 20 meq Documented By: NL Vital Signs Vital signs: Vital Signs - 8 hr 03/29/24 11:13 03/29/24 13:36 Temperature 97.7 F Pulse Rate 71 65 Respiratory Rate 17 12 Blood Pressure 144/78 H 142/82 H Pulse Oximetry 98 96 Oxygen Delivery Method Room Air Room Air <Mariana Diaz DO - Last Filed: 03/30/24 07:07> Orders Ordered: Discontinued Medications Ketorolac Tromethamine (Ketorolac 30 Mg/Ml Vial) 15 mg IM NOW ONE Stop: 03/29/24 13:14 Last Admin: 03/29/24 13:36 Dose: 15 mg Documented By: NL Potassium Chloride (Potassium Chloride 20 Meq/15 Ml Udc) 20 meq PO NOW ONE Stop: 03/29/24 13:12 Last Admin: 03/29/24 13:36 Dose: 20 meq Documented By: NL Vital Signs Vital signs: Vital Signs - 8 hr 03/29/24 11:13 03/29/24 13:36 Temperature 97.7 F Pulse Rate 71 65 Respiratory Rate 17 12 Blood Pressure 144/78 H 142/82 H Pulse Oximetry 98 96 Oxygen Delivery Method Room Air Room Air MDM - Back Pain/Injury <THIERRY Gooden Last Filed: 03/29/24 13:42> Lab Data 03/29/24 11:30 03/29/24 11:30 Labs: Lab Results 03/29/24 Range/Units 11:30 WBC 9.3 (4.5-11.0) X10^3/uL RBC 4.94 (4.0-5.2) X10^6/uL Hgb 15.0 (12.0-16.0) g/dL Hct 42.9 (36-46) % MCV 86.9 (80-100) fL MCH 30.3 (26-34) PG MCHC 34.9 (30-36) % RDW 12.7 (11.6-14.8) % Plt Count 266 (150-400) X10^3/uL Neut % (Auto) 62.5 (50-75) % Lymph % (Auto) 27.3 (25-40) % [place] % (Auto) 7.3 (3-14) % Eos % (Auto) 2.4 (2-4) % Baso % (Auto) 0.5 (0-2) % Neut # (Auto) 5800 (1726-4721) /uL Lymph # (Auto) 2500 (0458-8181) /uL [place] # (Auto) 700 (0-900) /uL Eos # (Auto) 200 (0-450) /uL Baso # (Auto) 0 (0-100) /uL Sodium 138 (137-145) mmol/L Potassium 3.3 L (3.4-5.1) mmol/L Chloride 99 (98-107) mmol/L Carbon Dioxide 31 (22-32) mmol/L BUN 13 (7-17) mg/dL Creatinine 0.83 (0.52-1.04) mg/dL Estimated GFR > 60 (>60) mL/min BUN/Creatinine Ratio 15.7 (6-22) Glucose 143 H (80-110) mg/dL Calcium 9.3 (8.4-10.2) mg/dL Total Bilirubin 0.8 (0.2-1.3) mg/dL AST 31 (14-36) IU/L ALT 29 (<35) IU/L Alkaline Phosphatase 82 (38-126) U/L Total Protein 7.7 (6.3-8.2) g/dL Albumin 4.6 (3.5-5.0) g/dL Globulin 3.1 (1.7-4.1) g/dL Albumin/Globulin Ratio 1.5 (1.0-2.8) Lipase 47 (23-300) U/L Urine Dip Bedside Urine Glucose Negative Bedside Urine Bilirubin - Negative Bedside Urine Ketone - Negative Urine Specific [place] 1.010 Bedside Urine Occult Blood +/- Bedside Urine pH 8.0 Bedside Urine Protein - Negative Bedside Urine Urobilinogen - Negative Bedside Urine Nitrite - Negative Bedside Urine Leukocytes - Negative Esterase Imaging Data CT scan - abdomen/pelvis: Radiologist's Impression: [address] [address] [address] Scan Report Signed Patient: Dayna Clayton MR#: [id number] : 1960 Acct:[id number] Age/Sex: 63 / F Date of Service: 03/29/24 Loc: ED Accession Number: [id number] Procedure: CT abdomen pelvis w con Ordering Provider: Fito Melissa P.A-C PROCEDURE: CT ABDOMEN PELVIS W CON INDICATIONS: Back pain and suprapubic TTP TECHNIQUE: After the administration of intravenous contrast, axial sections acquired from the lung bases to the pubic symphysis. Coronal and sagittal reformats were performed. For radiation dose reduction, the following was used: automated exposure control, adjustment of mA and/or kV according to patient size. COMPARISON: [facility], CT, CT ABDOMEN PELVIS W CON, 05/30/2022, 13:16. FINDINGS: Image quality: Diagnostic. Lower Chest: No significant findings. ABDOMEN: Liver: No solid mass. Hepatic steatosis. Gallbladder: The gallbladder surgically absent. Biliary ducts: No biliary dilation. Pancreas: No ductal dilation. Diffuse fatty atrophy. Spleen: Size is within normal limits. Adrenal Glands: No adrenal nodules. Kidneys and Ureters: No hydronephrosis. No solid mass. No complex renal cystic lesion which requires follow up. Stomach and Bowel: Normal colonic caliber, without significant wall thickening. Peritoneum: No abnormal intraperitoneal fluid. No free air. Ventral Wall: Small fat containing umbilical hernia. Abdominal Nodes: No retroperitoneal or mesenteric adenopathy by size criteria. Vessels: Aorta and inferior vena cava are normal in size. PELVIS: Pelvic Organs: Unremarkable. Bladder: No bladder wall thickening, accounting for underdistention. Pelvic Nodes: No enlarged lymph nodes. Miscellaneous: No inguinal hernias are seen. Bones: No aggressive osseous abnormality. Old rib fractures. IMPRESSION: 1. No acute findings of the abdomen or pelvis to explain patient's symptoms. 2. Hepatic steatosis. 3. Fat containing umbilical hernia. Dictated by: Ghanshyam Kearney M.D. on 03/29/2024 at 11:30 Approved by: Ghanshyam Kearney M.D. on 03/29/2024 at 11:35 MDM Narrative Medical decision making narrative: ED course: This is a 63-year-old female presents emergency department due to suspected lower back pain with some radiculopathy. She was noted to be tender to her abdomen on exam although patient does have a history of chronic pain and fibromyalgia. CT abdomen and pelvis was ordered which showed no significant abnormalities but did show a small umbilical hernia which I have recommended she follow up with the primary care provider about. Patient does have a history of lower back pain suspect this is the cause of her symptoms. We will give Toradol and muscle relaxants. Urinalysis and lab work unremarkable other than very mild hypokalemia. Denies any concerning red flag symptoms such as saddle paresthesias, urinary or bowel incontinence, or fevers. CC: Lower back pain with radiculopathy Complicating co-morbidities: History of chronic pain, fibromyalgia, cholecystectomy, IBS Data collected from: Previous notes Medical records reviewed: Patient was last seen about 2 years ago due to abdominal pain. History of chronic pain, fibromyalgia. Was presenting with right upper quadrant pain. History of IBS. CT abdomen and pelvis was ordered which showed a distended gallbladder and cystic duct with gallstones and cholecystitis. Ultrasound showed a hydrops pick appearing gallbladder with stone. Dr. Rangel of General surgery was consulted who recommended MRCP. Patient was admitted to surgery for cholecystectomy. Differential considered, but not limited to: Lower back pain, spinal cord injury, gastritis, UTI Exam documented above, pertinent findings include: Tenderness to palpation to lumbar paraspinals as well as suprapubic area Lab Test results independently reviewed as above. Pertinent findings: Showed very mild hypokalemia Imaging studies independently reviewed: CT abdomen and pelvis unremarkable although did show a small fat containing umbilical hernia which I recommended she follow up with the primary care provider about. Scores Used: None MIPS Elements: None Consultations: None Treatments: Toradol, oral potassium Re-evaluations: None Discussion: Discussed plan with the patient was comfortable with the plan Diagnosis: Lower back pain Disposition: see below, along with detailed discharge instructions that have been reviewed with patient as well as indications for ED re-evaluation and additional outpatient follow up <Mariana Diaz DO - Last Filed: 03/30/24 07:07> Lab Data Labs: Lab Results 03/29/24 Range/Units 11:30 WBC 9.3 (4.5-11.0) X10^3/uL RBC 4.94 (4.0-5.2) X10^6/uL Hgb 15.0 (12.0-16.0) g/dL Hct 42.9 (36-46) % MCV 86.9 (80-100) fL MCH 30.3 (26-34) PG MCHC 34.9 (30-36) % RDW 12.7 (11.6-14.8) % Plt Count 266 (150-400) X10^3/uL Neut % (Auto) 62.5 (50-75) % Lymph % (Auto) 27.3 (25-40) % [place] % (Auto) 7.3 (3-14) % Eos % (Auto) 2.4 (2-4) % Baso % (Auto) 0.5 (0-2) % Neut # (Auto) 5800 (1786-2288) /uL Lymph # (Auto) 2500 (0831-4611) /uL [place] # (Auto) 700 (0-900) /uL Eos # (Auto) 200 (0-450) /uL Baso # (Auto) 0 (0-100) /uL Sodium 138 (137-145) mmol/L Potassium 3.3 L (3.4-5.1) mmol/L Chloride 99 (98-107) mmol/L Carbon Dioxide 31 (22-32) mmol/L BUN 13 (7-17) mg/dL Creatinine 0.83 (0.52-1.04) mg/dL Estimated GFR > 60 (>60) mL/min BUN/Creatinine Ratio 15.7 (6-22) Glucose 143 H (80-110) mg/dL Calcium 9.3 (8.4-10.2) mg/dL Total Bilirubin 0.8 (0.2-1.3) mg/dL AST 31 (14-36) IU/L ALT 29 (<35) IU/L Alkaline Phosphatase 82 (38-126) U/L Total Protein 7.7 (6.3-8.2) g/dL Albumin 4.6 (3.5-5.0) g/dL Globulin 3.1 (1.7-4.1) g/dL Albumin/Globulin Ratio 1.5 (1.0-2.8) Lipase 47 (23-300) U/L Urine Dip Bedside Urine Glucose Negative Bedside Urine Bilirubin - Negative Bedside Urine Ketone - Negative Urine Specific [place] 1.010 Bedside Urine Occult Blood +/- Bedside Urine pH 8.0 Bedside Urine Protein - Negative Bedside Urine Urobilinogen - Negative Bedside Urine Nitrite - Negative Bedside Urine Leukocytes - Negative Esterase Discharge Plan Departure Patient Disposition: Home Clinical Impression: Strain of lumbar region Instructions: DI for Back Spasm Activity Restrictions/Additional Instructions: Thank you for coming to the [facility] Emergency Department today. As we discussed your lab work and CT scan were reassuring. It did show a small fat containing umbilical hernia which I recommend you follow up with the primary care provider about. We have given you a small amount of potassium supplementation as your lab work showed a very mild low potassium level. I suspect the pain you are having his from your chronic lower back pain. The Toradol give me today as was the muscle relaxants should help with the pain. 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 Please return to the emergency department if you develop any significant nausea or vomiting, significant new or worsening pain, or any other concerning signs or symptoms. I hope you feel better soon. Please follow up with your primary care provider within a week if your symptoms continue. If you do not have a primary care provider please contact the [facility] Resource line at [phone]. They will ask some questions about your medical history and help you get set up with a provider in the community. Prescriptions: New cyclobenzaprine 10 mg tablet 10 mg PO TID PRN (Reason: muscle spasm) Qty: 30 0RF No Action chlorthalidone 25 mg tablet 25 mg PO DAILY trazodone 100 mg tablet 100 mg PO ONCE PM omeprazole 20 mg capsule,delayed release(DR/EC) 20 mg PO BID pregabalin 50 mg capsule 50 mg PO BID Qty: 60 2RF Rx Instructions: 1 PO QHS x3 days If tolerated, 1 PO BID cholecalciferol (vitamin D3) 25 mcg (1,000 unit) capsule 25 mcg PO DAILY cyclobenzaprine 10 mg tablet 10 mg PO ONCE PM colchicine [Colcrys] 0.6 mg tablet PO albuterol sulfate [ProAir HFA] 90 mcg/actuation HFA aerosol inhaler inhalation Patient Comments: [NO ORIGINAL SIG] Referrals: Gilberto Parson DO [Primary Care Provider] - Stand Alone Forms: Patient Portal/API ED Sign-out <Mariana Diaz DO - Last Filed: 03/30/24 07:07> Cosign ED Attending Cospiotrature Attestation: I was available for consultation.
--- NOTE | 2024-03-29 11:25 | DI.CT.S_ITS ---
PROCEDURE: CT ABDOMEN PELVIS W CON INDICATIONS: Back pain and suprapubic TTP TECHNIQUE: After the administration of intravenous contrast, axial sections acquired from the lung bases to the pubic symphysis. Coronal and sagittal reformats were performed. For radiation dose reduction, the following was used: automated exposure control, adjustment of mA and/or kV according to patient size. COMPARISON: [facility], CT, CT ABDOMEN PELVIS W CON, 05/30/2022, 13:16. FINDINGS: Image quality: Diagnostic. Lower Chest: No significant findings. ABDOMEN: Liver: No solid mass. Hepatic steatosis. Gallbladder: The gallbladder surgically absent. Biliary ducts: No biliary dilation. Pancreas: No ductal dilation. Diffuse fatty atrophy. Spleen: Size is within normal limits. Adrenal Glands: No adrenal nodules. Kidneys and Ureters: No hydronephrosis. No solid mass. No complex renal cystic lesion which requires follow up. Stomach and Bowel: Normal colonic caliber, without significant wall thickening. Peritoneum: No abnormal intraperitoneal fluid. No free air. Ventral Wall: Small fat containing umbilical hernia. Abdominal Nodes: No retroperitoneal or mesenteric adenopathy by size criteria. Vessels: Aorta and inferior vena cava are normal in size. PELVIS: Pelvic Organs: Unremarkable. Bladder: No bladder wall thickening, accounting for underdistention. Pelvic Nodes: No enlarged lymph nodes. Miscellaneous: No inguinal hernias are seen. Bones: No aggressive osseous abnormality. Old rib fractures. IMPRESSION: 1. No acute findings of the abdomen or pelvis to explain patient's symptoms. 2. Hepatic steatosis. 3. Fat containing umbilical hernia. Dictated by: Ghanshyam Kearney M.D. on 03/29/2024 at 11:30 Approved by: Ghanshyam Kearney M.D. on 03/29/2024 at 11:35
[2024-03-29 11:41] LABS: Add Manual Diff / Slide Review NO; Basophils Absolute Auto 0 /uL (0-100); Basophils Percent Auto 0.5 % (0-2); Eosinophils Absolute Auto 200 /uL (0-450); Eosinophils Percent Auto 2.4 % (2-4); Hematocrit 42.9 % (36-46); Lymphocytes Absolute Auto 2500 /uL (1100-4500); Lymphocytes Percent Auto 27.3 % (25-40); Mean Corpuscular HGB Conc 34.9 % (30-36); Mean Corpuscular Hemoglobin 30.3 PG (26-34); Mean Corpuscular Volume 86.9 fL (80-100); Monocytes Absolute Auto 700 /uL (0-900); Monocytes Percent Auto 7.3 % (3-14); Neutrophils Absolute Auto 5800 /uL (1500-7000); Neutrophils Percent Auto 62.5 % (50-75); Platelet Count 266 X10^3/uL (150-400); Red Blood Cell Count 4.94 X10^6/uL (4.0-5.2); Red Cell Distribution Width 12.7 % (11.6-14.8); White Blood Cell Count 9.3 X10^3/uL (4.5-11.0)
[2024-03-29 11:53] LABS: Alanine Aminotransferase 29 IU/L (<35); Albumin 4.6 g/dL (3.5-5.0); Albumin Globulin Ratio 1.5 (1.0-2.8); Alkaline Phosphatase 82 U/L (38-126); Aspartate Aminotransferase 31 IU/L (14-36); BUN Creatinine Ratio 15.7 (6-22); Bilirubin Total 0.8 mg/dL (0.2-1.3); Blood Urea Nitrogen 13 mg/dL (7-17); Calcium 9.3 mg/dL (8.4-10.2); Carbon Dioxide 31 mmol/L (22-32); Chloride 99 mmol/L (98-107); Estimated Glomerular Filt Rate > 60 mL/min (>60); Globulin 3.1 g/dL (1.7-4.1); Glucose 143 mg/dL (80-110); HEMOLYSIS < 15 (0-50); Lipase 47 U/L (23-300); Potassium 3.3 mmol/L (3.4-5.1); Sodium 138 mmol/L (137-145); Total Protein 7.7 g/dL (6.3-8.2)
[2024-03-29 13:36] VITALS: BP 142/82; PULSE 65; RESP 12; O2SAT 96
[2024-03-29] MEDS: KETOROLAC 30 MG/ML VIAL 15 MG IM (13:36)
[2024-03-29] MEDS: POTASSIUM CHLORIDE 20 MEQ/15 ML UDC PO (13:36)
== END 2024-03-29 13:44 | disposition home or self-care (01) ==
PROVIDERS: Emergency Provider Physician Assistant Medical; PCP Family Medicine
DX: S39.012A Strain of muscle, fascia and tendon of lower back, initial encounter (principal)
CPT/HCPCS: 36415; 74177; 80053; 81003; 83690; 85025; 96372; 99284; J1885; Q9967

== ENCOUNTER 2024-06-06 15:15 | Emergency (ER) | payer MEDICARE, OTHER, SELFPAY ==
[2022-05-30 17:38] VITALS: BMI 29.7
[2024-06-06] VITALS (8 sets, daily range): BP systolic 120–146; BP diastolic 69–78; PULSE 62–107; RESP 15–25; TEMP 37.2; O2SAT 94–100; BMI 30.4
--- NOTE | 2024-06-06 15:22 | DI.RAD.S_ITS ---
PROCEDURE: XR CHEST 1V INDICATIONS: chest pain TECHNIQUE: One view of the chest was acquired. COMPARISON: None. FINDINGS: Surgical changes and devices: Cholecystectomy clips. Lungs and pleura: Lungs are clear. No pleural effusions or pneumothorax. Mediastinum: Mediastinal contours appear normal. Heart size is normal. Bones and chest wall: No suspicious bony lesions. Overlying soft tissues appear unremarkable. IMPRESSION: No acute pulmonary process. Dictated by: Yari Romano M.D. on 06/06/2024 at 16:11 Approved by: Yari Romano M.D. on 06/06/2024 at 16:11
--- NOTE | 2024-06-06 15:28 | EKG_ITS ---
[place] [address] [address] [place] [id number] Test Date: 2024-06-06 Pat Name: Dayna Clayton Department: 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
[2024-06-06] MEDS: ASPIRIN 81 MG CHEW TAB 324 MG PO (15:33)
[2024-06-06 15:35] LABS: Add Manual Diff / Slide Review NO; Basophils Absolute Auto 0 /uL (0-100); Basophils Percent Auto 0.6 % (0-2); Eosinophils Absolute Auto 400 /uL (0-450); Eosinophils Percent Auto 4.5 % (2-4); Hemoglobin 14.2 g/dL (12.0-16.0); Lymphocytes Absolute Auto 2400 /uL (1100-4500); Lymphocytes Percent Auto 29.5 % (25-40); Mean Corpuscular HGB Conc 34.5 % (30-36); Mean Corpuscular Hemoglobin 30.1 PG (26-34); Mean Corpuscular Volume 87.2 fL (80-100); Monocytes Absolute Auto 700 /uL (0-900); Monocytes Percent Auto 8.6 % (3-14); Neutrophils Absolute Auto 4600 /uL (1500-7000); Neutrophils Percent Auto 56.8 % (50-75); Platelet Count 278 X10^3/uL (150-400); Red Cell Distribution Width 12.9 % (11.6-14.8)
[2024-06-06 15:49] LABS: INR 0.9 (0.9-1.3); Prothrombin Time 10.8 SECONDS (9.4-12.5)
[2024-06-06 15:51] LABS: PTT Partial Thromboplastin Tim 33 SECONDS (25.1-36.5)
[2024-06-06 16:21] LABS: Alanine Aminotransferase 26 IU/L (<35); Albumin 4.2 g/dL (3.5-5.0); Albumin Globulin Ratio 1.4 (1.0-2.8); Alkaline Phosphatase 90 U/L (38-126); Aspartate Aminotransferase 30 IU/L (14-36); BUN Creatinine Ratio 21.7 (6-22); Bilirubin Total 0.4 mg/dL (0.2-1.3); Blood Urea Nitrogen 18 mg/dL (7-17); Calcium 9.1 mg/dL (8.4-10.2); Carbon Dioxide 27 mmol/L (22-32); Chloride 103 mmol/L (98-107); Creatine Kinase 69 U/L (30-135); Estimated Glomerular Filt Rate > 60 mL/min (>60); Glucose 207 mg/dL (80-110); HEMOLYSIS < 15 (0-50); Lipase 58 U/L (23-300); Magnesium 1.9 mg/dL (1.6-2.3); Potassium 3.1 mmol/L (3.4-5.1); Sodium 137 mmol/L (137-145); Total Protein 7.2 g/dL (6.3-8.2)
--- NOTE | 2024-06-06 16:23 | ED_ITS ---
HPI - Chest Pain General Chief Complaint: Chest Pain Stated Complaint: chest pressure and tightness after pneumonia vac Time Seen by Provider: 06/06/24 15:19 Source: patient Mode of arrival: Ambulatory History of Present Illness HPI narrative: 63-year-old female with history of hypertension, chronic back pain presents for evaluation of anterior chest pain and pressure for the last 3-4 days. Patient states symptoms started after getting the Pneumovax at her primary care doctor's appointment. Pain is constant, worse with deep breaths, nothing makes it better. Has been taking her usual pain medications at home without significant change. Denies history of heart problems. Related Data Home Medications Medication Instructions Recorded Confirmed chlorthalidone 25 mg tablet 25 mg PO DAILY 09/12/21 05/12/24 cholecalciferol (vitamin D3) 25 25 mcg PO DAILY 08/28/23 05/12/24 mcg (1,000 unit) capsule albuterol sulfate 90 mcg/actuation inhalation 12/18/23 05/12/24 aerosol inhaler (ProAir HFA) colchicine 0.6 mg tablet (Colcrys) mg PO 12/18/23 05/12/24 cyclobenzaprine 10 mg tablet 10 mg PO ONCE PM 12/18/23 05/12/24 trazodone 100 mg tablet 100 mg PO ONCE PM 01/29/24 05/12/24 omeprazole 20 mg capsule,delayed 20 mg PO BID 03/17/24 05/12/24 release Previous Rx's Medication Instructions Recorded cyclobenzaprine 10 mg tablet 10 mg PO TID PRN muscle spasm #30 03/29/24 tabs pregabalin 50 mg capsule 50 mg PO BID #60 caps 05/12/24 Allergies Allergy/AdvReac Type Severity Reaction Status Date / Time Sulfa (Sulfonamide Allergy Unknown SWELLING Verified 06/06/24 15:22 Antibiotics) [SULFA (SULFONAMIDE ANTIBIOTICS)] losartan AdvReac Unknown Cough Verified 06/06/24 15:22 lisinopril AdvReac Cough Verified 06/06/24 15:22 Patient History Medical History Lumbar spondylosis Lumbar foraminal stenosis Dorsalgia Lumbar radiculopathy Hypertension Asthma Arthritis Fibromyalgia Social History household members: spouse Smoking Status: Never smoker alcohol intake: current Smoking Status: Never smoker alcohol intake frequency: holidays/special occasions only Substance Use Type: does not use Exam Initial Vital Signs Initial Vital Signs: Vital Signs Temperature 99 F 06/06/24 15:20 Pulse Rate 68 06/06/24 15:20 Respiratory Rate 16 06/06/24 15:20 Blood Pressure 145/78 H 06/06/24 15:20 Pulse Oximetry 98 06/06/24 15:20 Oxygen Delivery Method Room Air 06/06/24 15:20 Const: Awake, alert, no acute distress, nontoxic appearing Cardiac: regular rate, regular rhythm Chest: Generalized tenderness to palpation along anterior chest, particularly along bilateral sternal borders RESP: unlabored, clear bilaterally, no wheezing MSK: No edema, full range of motion, pulses equal Skin: Warm, Dry, intact, no rashes Neuro: AO x3, CN II-XII grossly intact, moves all extremities Course Orders Ordered: Discontinued Medications Aspirin (Aspirin 81 Mg Chew Tab) 324 mg PO NOW ONE Stop: 06/06/24 15:23 Last Admin: 06/06/24 15:33 Dose: 324 mg Documented By: RAY Ketorolac Tromethamine (Ketorolac 30 Mg/Ml Vial) 15 mg IV NOW ONE Stop: 06/06/24 16:12 Last Admin: 06/06/24 16:55 Dose: 15 mg Documented By: RAY Vital Signs Vital signs: Vital Signs - 8 hr 06/06/24 15:20 Temperature 99 F Pulse Rate 68 Respiratory Rate 16 Blood Pressure 145/78 H Pulse Oximetry 98 Oxygen Delivery Method Room Air MDM - Chest Pain Differential Diagnosis Differential diagnosis: Likely atypical chest pain, costochondritis and chest pain Lab Data 06/06/24 15:28 06/06/24 15:28 Labs: Lab Results 06/06/24 Range/Units 15:28 WBC 8.0 (4.5-11.0) X10^3/uL RBC 4.70 (4.0-5.2) X10^6/uL Hgb 14.2 (12.0-16.0) g/dL Hct 41.0 (36-46) % MCV 87.2 (80-100) fL MCH 30.1 (26-34) PG MCHC 34.5 (30-36) % RDW 12.9 (11.6-14.8) % Plt Count 278 (150-400) X10^3/uL Neut % (Auto) 56.8 (50-75) % Lymph % (Auto) 29.5 (25-40) % Jennings % (Auto) 8.6 (3-14) % Eos % (Auto) 4.5 H (2-4) % Baso % (Auto) 0.6 (0-2) % Neut # (Auto) 4600 (0540-6618) /uL Lymph # (Auto) 2400 (2423-6575) /uL Jennings # (Auto) 700 (0-900) /uL Eos # (Auto) 400 (0-450) /uL Baso # (Auto) 0 (0-100) /uL PT 10.8 (9.4-12.5) SECONDS INR 0.9 (0.9-1.3) APTT 33 (25.1-36.5) SECONDS Sodium 137 (137-145) mmol/L Potassium 3.1 L (3.4-5.1) mmol/L Chloride 103 (98-107) mmol/L Carbon Dioxide 27 (22-32) mmol/L BUN 18 H (7-17) mg/dL Creatinine 0.83 (0.52-1.04) mg/dL Estimated GFR > 60 (>60) mL/min BUN/Creatinine Ratio 21.7 (6-22) Glucose 207 H (80-110) mg/dL Calcium 9.1 (8.4-10.2) mg/dL Magnesium 1.9 (1.6-2.3) mg/dL Total Bilirubin 0.4 (0.2-1.3) mg/dL AST 30 (14-36) IU/L ALT 26 (<35) IU/L Alkaline Phosphatase 90 (38-126) U/L Total Creatine Kinase 69 (30-135) U/L Troponin I < 0.012 (0.01-0.034) ng/mL NT-Pro-B Natriuret Pep 61 (<125) pg/mL Total Protein 7.2 (6.3-8.2) g/dL Albumin 4.2 (3.5-5.0) g/dL Globulin 3.0 (1.7-4.1) g/dL Albumin/Globulin Ratio 1.4 (1.0-2.8) Lipase 58 (23-300) U/L Imaging Data Chest x-ray: Radiologist's Impression: PROCEDURE: XR CHEST 1V INDICATIONS: chest pain TECHNIQUE: One view of the chest was acquired. COMPARISON: None. FINDINGS: Surgical changes and devices: Cholecystectomy clips. Lungs and pleura: Lungs are clear. No pleural effusions or pneumothorax. Mediastinum: Mediastinal contours appear normal. Heart size is normal. Bones and chest wall: No suspicious bony lesions. Overlying soft tissues appear unremarkable. IMPRESSION: No acute pulmonary process. Dictated by: Yari Romano M.D. on 06/06/2024 at 16:11 Approved by: Yari Romano M.D. on 06/06/2024 at 16:11 ECG Data Interpretation: Normal sinus rhythm at 70 beats per minute. Normal OR, PVCs present in pattern of bigeminy MDM Narrative Medical decision making narrative: Well-appearing female with 3-4 days of anterior reproducible chest wall pain. EKG sinus rhythm without obvious ischemia. Chest x-ray negative for acute findings. Troponin undetectable, BNP 61. Pain as well as pattern and distribution consistent with costochondritis. Patient counseled to take anti- inflammatories as needed for pain and to follow up with her primary doctor. Patient informed of mildly elevated glucose level, which appears to be new. Discharge Plan Departure Patient Disposition: Home Clinical Impression: Chest pain Instructions: DI for Chest Pain Activity Restrictions/Additional Instructions: Your EKG, chest x-ray, and heart enzymes were normal today. You had tenderness along your breast bone when I pressed there, which may mean inflammation along your breast bone. Take Tylenol and ibuprofen for pain at home. Incidentally, I did notice that you had a slightly high glucose level here today. Make sure that you touch base with your primary care doctor about your glucose to make sure that you are not in early stages of diabetes. Prescriptions: No Action chlorthalidone 25 mg tablet 25 mg PO DAILY cyclobenzaprine 10 mg tablet 10 mg PO TID PRN (Reason: muscle spasm) Qty: 30 0RF trazodone 100 mg tablet 100 mg PO ONCE PM omeprazole 20 mg capsule,delayed release(DR/EC) 20 mg PO BID cholecalciferol (vitamin D3) 25 mcg (1,000 unit) capsule 25 mcg PO DAILY cyclobenzaprine 10 mg tablet 10 mg PO ONCE PM colchicine [Colcrys] 0.6 mg tablet PO albuterol sulfate [ProAir HFA] 90 mcg/actuation HFA aerosol inhaler inhalation Patient Comments: [NO ORIGINAL SIG] pregabalin 50 mg capsule 50 mg PO BID Qty: 60 2RF Rx Instructions: 1 PO QHS x3 days If tolerated, 1 PO BID Referrals: Gilberto Parson DO [Primary Care Provider] - Stand Alone Forms: Patient Portal/API
[2024-06-06 16:32] LABS: NT-proBNP (BNP-Adult 18+) 61 pg/mL (<125); Troponin I < 0.012 ng/mL (0.01-0.034)
[2024-06-06] MEDS: KETOROLAC 30 MG/ML VIAL 15 MG IV (16:55)
== END 2024-06-06 17:19 | disposition home or self-care (01) ==
PROVIDERS: Emergency Provider Emergency Medicine; PCP Family Medicine
DX: R07.9 Chest pain, unspecified (principal); Z79.899 Other long term (current) drug therapy
CPT/HCPCS: 36415; 71045; 80053; 82550; 83690; 83735; 83880; 84484; 85025; 85610; 85730; 93005; 96374; 99284; J1885

== ENCOUNTER 2024-12-07 03:26 | Emergency (ER) | payer MEDICARE, OTHER, SELFPAY ==
[2022-05-30 17:38] VITALS: BMI 29.7
[2024-12-07 03:32] VITALS: BP 133/77; PULSE 63; RESP 15; TEMP 36.6; O2SAT 96; BMI 29.2
--- NOTE | 2024-12-07 04:04 | ED_ITS ---
HPI - Back Pain/Injury General Chief Complaint: Back Pain/Injury Stated Complaint: Upper neck and head pain x one week Time Seen by Provider: 12/07/24 04:04 Source: patient History of Present Illness HPI Narrative: 64-year-old female with history of fibromyalgia complains of one-week duration of left neck and left scapular area discomfort, worse with movement, no injury or new activities recalled. No numbness or tingling to the left upper extremity. She denies headache to me but indicated left laeral posterior upper neck discomfort, worse with movement of head. No change in medications. No change in sleep position, pillows, sleep hygiene. Pain is worse with left upper extremity movements and worse with attempted movements of the head, lateral bending and neck rotation. She has not tried any recent medications for this discomfort. No other areas of pain. Related Data Home Medications Medication Instructions Recorded Confirmed chlorthalidone 25 mg tablet 25 mg PO DAILY 09/12/21 05/12/24 cholecalciferol (vitamin D3) 25 25 mcg PO DAILY 08/28/23 05/12/24 mcg (1,000 unit) capsule albuterol sulfate 90 mcg/actuation inhalation 12/18/23 05/12/24 aerosol inhaler (ProAir HFA) colchicine 0.6 mg tablet (Colcrys) mg PO 12/18/23 05/12/24 cyclobenzaprine 10 mg tablet 10 mg PO ONCE PM 12/18/23 05/12/24 trazodone 100 mg tablet 100 mg PO ONCE PM 01/29/24 05/12/24 omeprazole 20 mg capsule,delayed 20 mg PO BID 03/17/24 05/12/24 release Previous Rx's Medication Instructions Recorded cyclobenzaprine 10 mg tablet 10 mg PO TID PRN muscle spasm #30 03/29/24 tabs pregabalin 50 mg capsule 50 mg PO BID #60 caps 05/12/24 methocarbamol 500 mg tablet 500 mg PO TID 7 days #21 tabs 12/07/24 Allergies Allergy/AdvReac Type Severity Reaction Status Date / Time Sulfa (Sulfonamide Allergy Unknown SWELLING Verified 06/06/24 15:22 Antibiotics) [SULFA (SULFONAMIDE ANTIBIOTICS)] losartan AdvReac Unknown Cough Verified 06/06/24 15:22 lisinopril AdvReac Cough Verified 06/06/24 15:22 Patient History Medical History Lumbar spondylosis Lumbar foraminal stenosis Dorsalgia Lumbar radiculopathy Hypertension Asthma Arthritis Fibromyalgia Social History household members: spouse Smoking Status: Never smoker alcohol intake: current Smoking Status: Never smoker alcohol intake frequency: holidays/special occasions only Exam Narrative Exam Narrative: GENERAL: Well-developed patient, in mild distress. HEAD: Atraumatic. Normocephalic. EYES: Pupils equal round and reactive. Extraocular motions intact. No scleral icterus. No injection or drainage. ENT: No obvious facial trauma. Airway patent. NECK: Trachea midline. No anerior or posterior neck scars noted. No midline cervical tenderness. Mild left-sided lateral cervical muscle tenderness, no skin changes. CARDIOVASCULAR: Regular rate and rhythm without murmurs, gallops, or rubs. RESPIRATORY: Clear to auscultation. Breath sounds equal bilaterally. No wheezes, rales, or rhonchi. GASTROINTESTINAL: Abdomen soft, non-tender, nondistended. EXTREMITIES: No edema or joint tenderness. Some tenderness along the left superior trapezius, left superior rhomboid musculature. No skin changes or rash. BACK: Nontender without deformity or crepitance. No flank tenderness. NEURO: AOx3. Motor functions grossly nonfocal SKIN: No rash or erythema of visible areas Initial Vital Signs Initial Vital Signs: Vital Signs Temperature 98 F 12/07/24 03:32 Pulse Rate 63 12/07/24 03:32 Respiratory Rate 15 12/07/24 03:32 Blood Pressure 133/77 12/07/24 03:32 Pulse Oximetry 96 12/07/24 03:32 Oxygen Delivery Method Room Air 12/07/24 03:32 Course Orders Ordered: Discontinued Medications Cyclobenzaprine HCl (Cyclobenzaprine 10 Mg Prepack) 1 bottle MISC DIRECTED ONE Stop: 12/07/24 05:20 Last Admin: 12/07/24 05:26 Dose: 1 bottle Documented By: Ketorolac Tromethamine (Ketorolac 30 Mg/Ml Vial) 30 mg IM NOW ONE Stop: 12/07/24 04:10 Last Admin: 12/07/24 04:14 Dose: 30 mg Documented By: CODI Methocarbamol (Methocarbamol 500 Mg Tablet) 500 mg PO NOW ONE Stop: 12/07/24 04:10 Last Admin: 12/07/24 04:13 Dose: 500 mg Documented By: CODI Vital Signs Vital signs: Vital Signs - 8 hr 12/07/24 03:32 Temperature 98 F Pulse Rate 63 Respiratory Rate 15 Blood Pressure 133/77 Pulse Oximetry 96 Oxygen Delivery Method Room Air MDM - Back Pain/Injury Lab Data Attestation: I reviewed the patient's lab results. Lab results narrative: Urine dip negative Labs: Urine Dip Bedside Urine Glucose Negative Bedside Urine Bilirubin - Negative Bedside Urine Ketone - Negative Urine Specific [place] 1.030 Bedside Urine Occult Blood +/- Bedside Urine pH 5.5 Bedside Urine Protein +/- 15 Bedside Urine Urobilinogen - Negative Bedside Urine Nitrite - Negative Bedside Urine Leukocytes +/- 15 Esterase MDM Narrative Medical decision making narrative: 64-year-old female with history of fibromyalgia, one-week duration of left-sided neck and scapular area pain, no injury recalled. Afebrile, sirs screen negative. Some tenderness to the left superior trapezius and superior rhomboid and lateral left cervical musculature. No midline cervical tenderness. Trial of relaxant and analgesics, patient agreeable. Hold advanced imaging for now. IM Toradol. Oral methocarbamol. Improved symptoms, did request homepack Cyclobenzaprine for discharge, but methocarbamol/Robaxin Rx sent which she will try further next coming days. DC home with family, stable, improved. Discharge Plan Departure Patient Disposition: Home Clinical Impression: Strain of neck, Strain of left trapezius muscle, Strain of left rhomboid muscle Instructions: DI for Muscle Strain Activity Restrictions/Additional Instructions: History of fibromyalgia. One-week duration of left-sided neck discomfort, also with left scapular area and trapezius area discomfort. On examination there is no midline tenderness to the cervical spine at this time, some tenderness to the left lateral neck musculature, also the superior trapezius musculature, as well as the superior rhomboid musculature. Intramuscular injection of Toradol was given. Also muscle relaxant methocarbamol 1st dose was given, with prescription sent to your pharmacy. Trial of muscle relaxant. Consider taking regular scheduled ibuprofen for the next 2-3 days. Recheck symptoms with your regular doctor in the next 2-3 days. Return earlier to this/nearest emergency department for any change worsening symptoms or any concerns prior Prescriptions: New methocarbamol 500 mg tablet 500 mg PO TID 7 Days Qty: 21 0RF No Action chlorthalidone 25 mg tablet 25 mg PO DAILY cyclobenzaprine 10 mg tablet 10 mg PO TID PRN (Reason: muscle spasm) Qty: 30 0RF trazodone 100 mg tablet 100 mg PO ONCE PM omeprazole 20 mg capsule,delayed release(DR/EC) 20 mg PO BID cholecalciferol (vitamin D3) 25 mcg (1,000 unit) capsule 25 mcg PO DAILY cyclobenzaprine 10 mg tablet 10 mg PO ONCE PM colchicine [Colcrys] 0.6 mg tablet PO albuterol sulfate [ProAir HFA] 90 mcg/actuation HFA aerosol inhaler inhalation Patient Comments: [NO ORIGINAL SIG] pregabalin 50 mg capsule 50 mg PO BID Qty: 60 2RF Rx Instructions: 1 PO QHS x3 days If tolerated, 1 PO BID Referrals: Gilberto Parson DO [Primary Care Provider] - Stand Alone Forms: Patient Portal/API/Survey
[2024-12-07] MEDS: methocarbamoL 500 MG TABLET PO (04:13)
[2024-12-07] MEDS: KETOROLAC 30 MG/ML VIAL IM (04:14)
[2024-12-07 05:19] VITALS: BP 115/68; PULSE 96; RESP 16; O2SAT 100
[2024-12-07] MEDS: CYCLOBENZAPRINE 10 MG PREPACK 1 BOTTLE MISC (05:26)
== END 2024-12-07 05:28 | disposition home or self-care (01) ==
PROVIDERS: Emergency Provider Emergency Medicine; PCP Family Medicine
DX: S16.1XXA Strain of muscle, fascia and tendon at neck level, initial encounter (principal); S29.012A Strain of muscle and tendon of back wall of thorax, initial encounter; S46.812A Strain of other muscles, fascia and tendons at shoulder and upper arm level, left arm, initial encounter; R51.9 Headache, unspecified; Z88.2 Allergy status to sulfonamides; I10 Essential (primary) hypertension
CPT/HCPCS: 81003; 96372; 99283; 99284; J1885

== ENCOUNTER 2024-12-29 15:30 | Emergency (ER) | payer MEDICARE, OTHER, SELFPAY ==
[2022-05-30 17:38] VITALS: BMI 29.7
[2024-12-29 16:03] VITALS: BP 134/79; PULSE 91; RESP 16; TEMP 36.6; O2SAT 96; BMI 29.2
--- NOTE | 2024-12-29 16:39 | PC.NURSE ---
Patient seen previously for same problem: very stiff neck and shoulders which started 2.5 weeks ago. She has tried robaxin, baclofen, and tylenol without relief.
--- NOTE | 2024-12-29 17:44 | ED_ITS ---
<Statement entered by Domingo Golden, - 01/01/25 06:52> Dr. Golden: I was immediately available in the department for consultation. I did not actually see the patient. HPI - Neck Pain/Injury General Chief Complaint: Neck Pain/Injury Stated Complaint: neck stiff and px Time Seen by Provider: 12/29/24 17:09 History of Present Illness HPI Narrative: 64-year-old female presents to the ED with continuing neck pain and stiffness. Patient was seen in the ED on 12/07/2024 for the same complaint, prescribed methocarbamol and referred to PCP for further evaluation. Patient has since seen her PCP who prescribed her baclofen. Patient states that neither med ication has improved her symptoms. No new trauma. No fever, chills. Patient's PCP has initiated PT referrals. Related Data Home Medications Medication Instructions Recorded Confirmed chlorthalidone 25 mg tablet 25 mg PO DAILY 09/12/21 05/12/24 cholecalciferol (vitamin D3) 25 25 mcg PO DAILY 08/28/23 05/12/24 mcg (1,000 unit) capsule albuterol sulfate 90 mcg/actuation inhalation 12/18/23 05/12/24 aerosol inhaler (ProAir HFA) colchicine 0.6 mg tablet (Colcrys) mg PO 12/18/23 05/12/24 cyclobenzaprine 10 mg tablet 10 mg PO ONCE PM 12/18/23 05/12/24 trazodone 100 mg tablet 100 mg PO ONCE PM 01/29/24 05/12/24 omeprazole 20 mg capsule,delayed 20 mg PO BID 03/17/24 05/12/24 release Previous Rx's Medication Instructions Recorded cyclobenzaprine 10 mg tablet 10 mg PO TID PRN muscle spasm #30 03/29/24 tabs pregabalin 50 mg capsule 50 mg PO BID #60 caps 05/12/24 cyclobenzaprine 10 mg tablet 10 mg PO TID PRN muscle spasm 5 12/29/24 days #15 tabs Allergies Allergy/AdvReac Type Severity Reaction Status Date / Time Sulfa (Sulfonamide Allergy Unknown SWELLING Verified 06/06/24 15:22 Antibiotics) [SULFA (SULFONAMIDE ANTIBIOTICS)] losartan AdvReac Unknown Cough Verified 06/06/24 15:22 lisinopril AdvReac Cough Verified 06/06/24 15:22 Review of Systems Constitutional Constitutional: Denies chills, Denies fatigue, Denies fever(s), Denies frequent falls, Denies lethargy and Denies weakness Eyes Eyes: Denies change in vision, Denies eye discharge, Denies irritation and D enies loss of vision ENT Ears, Nose, Mouth, and Throat: Denies change in voice, Denies dizziness, Reports neck pain, Denies sore throat and Denies throat swelling Cardiovascular Cardiovascular: Denies chest pain, Denies irregular heart rhythm, Denies lightheadedness, Denies palpitations, Denies dyspnea, Denies dyspnea on exertion and Denies orthopnea Respiratory Respiratory: Denies cough, Denies dyspnea, Denies dyspnea on exertion and Denies wheezing Gastrointestinal Gastrointestinal: Denies abdominal pain, Denies change in bowel habits, Denies diarrhea, Denies nausea and Denies vomiting Musculoskeletal Musculoskeletal: Reports neck pain and Denies numbness Integumentary/Breasts Skin/Breast: Denies pruritus, Denies erythema, Denies rash and Denies wounds Neurologic Neurologic: Denies behavioral changes, Denies confusion, Denies dizziness, Denies frequent falls, Denies loss of vision, Denies numbness and Denies weakness Psychiatric Psychiatric: Denies anxiety, Denies behavioral changes, Denies confusion, Denies depression, Denies homicidal ideation and Denies suicidal ideation Endocrine Endocrine: Denies fatigue, Denies flushing and Denies palpitations Hematologic/Lymphatic Hematologic/Lymphatic: Denies easy bruising Allergic/Immunologic Allergic/Immunologic: Denies urticaria, Denies throat swelling and Denies wheezing Patient History Medical History Lumbar spondylosis Lumbar foraminal stenosis Dorsalgia Lumbar radiculopathy Hypertension Asthma Arthritis Fibromyalgia Social History household members: spouse Smoking Status: Never smoker alcohol intake: current Smoking Status: Never smoker alcohol intake frequency: holidays/special occasions only Exam Narrative Exam Narrative: Const General:?cooperative, healthy appearing and comfortable [facility] Head:?normal to inspection Ears:?hearing grossly normal bilaterally Nose:?external nose normal Face and sinus:?normal facial exam and sinuses nontender Mouth:?oral mucosae normal Throat:?posterior oropharynx normal Eyes General:?appearance normal, both eyes and all related structures Neck Neck:?normal visual inspection and no lymphadenopathy noted; midline tenderness to palpation. There is some muscular tenderness on the sides of the neck and the back of the head. Range of motion is limited by pain. Neg meningeal signs Resp Effort & Inspection:?normal respiratory effort Auscultation:?clear to auscultation bilaterally Cardio Rate:?regular rate Rhythm:?regular rhythm Neuro General:?patient alert, patient awake and patient oriented x3 Initial Vital Signs Initial Vital Signs: Vital Signs Temperature 97.8 F 12/29/24 16:03 Pulse Rate 91 H 12/29/24 16:03 Respiratory Rate 16 12/29/24 16:03 Blood Pressure 134/79 12/29/24 16:03 Pulse Oximetry 96 12/29/24 16:03 Oxygen Delivery Method Room Air 12/29/24 16:03 Course Vital Signs Vital signs: Vital Signs - 8 hr 12/29/24 16:03 Temperature 97.8 F Pulse Rate 91 H Respiratory Rate 16 Blood Pressure 134/79 Pulse Oximetry 96 Oxygen Delivery Method Room Air MDM - Neck Pain/Injury MDM Narrative Medical decision making narrative: 64-year-old female presents to the ED with continuing neck pain and stiffness. Physical exam is reassuring for no midline tenderness to palpation. There is some muscular tenderness on the sides of the neck and the back of the head. No meningeal signs. Prescribed Flexeril. Recommend that patient follow-up with the physical therapy and possibly massage for her symptoms. ED return precautions discussed with patient. Patient verbalized understanding. Medical records reviewed: Yes Discharge Plan Departure Patient Disposition: Home Clinical Impression: Strain of neck muscle Instructions: DI for Neck Pain Activity Restrictions/Additional Instructions: You were evaluated in the ED today for neck pain. It appears that your symptoms are due to a musculoskeletal sprain/strain. Please follow-up with your PCP for referral to physical therapy and massage. You may continue Tylenol, ibuprofen, heat packs. You were also being prescribed Flexeril which is a different muscle relaxant. Return to the ED if you have worsening symptoms, numbness, tingling, weakness. Prescriptions: New cyclobenzaprine 10 mg tablet 10 mg PO TID PRN (Reason: muscle spasm) 5 Days Qty: 15 0RF No Action chlorthalidone 25 mg tablet 25 mg PO DAILY cyclobenzaprine 10 mg tablet 10 mg PO TID PRN (Reason: muscle spasm) Qty: 30 0RF trazodone 100 mg tablet 100 mg PO ONCE PM omeprazole 20 mg capsule,delayed release(DR/EC) 20 mg PO BID cholecalciferol (vitamin D3) 25 mcg (1,000 unit) capsule 25 mcg PO DAILY cyclobenzaprine 10 mg tablet 10 mg PO ONCE PM colchicine [Colcrys] 0.6 mg tablet PO albuterol sulfate [ProAir HFA] 90 mcg/actuation HFA aerosol inhaler inhalation Patient Comments: [NO ORIGINAL SIG] pregabalin 50 mg capsule 50 mg PO BID Qty: 60 2RF Rx Instructions: 1 PO QHS x3 days If tolerated, 1 PO BID Referrals: Gilberto Parson DO [Primary Care Provider] - Stand Alone Forms: Patient Portal/API/Survey
== END 2024-12-29 18:08 | disposition home or self-care (01) ==
PROVIDERS: Emergency Provider Student in an Organized Health Care Education/Training Program; PCP Family Medicine
DX: S16.1XXA Strain of muscle, fascia and tendon at neck level, initial encounter (principal)
CPT/HCPCS: 99281